=== PATIENT | female | born 1995 | race Caucasian/White ===

== ENCOUNTER 2018-01-03 08:10 | Emergency (ER) | payer OTHER, MEDICAID, SELFPAY ==
[2018-01-03 08:19] VITALS: BP 116/77; PULSE 90; RESP 18; TEMP 37.2; O2SAT 96; BMI 33.0
--- NOTE | 2018-01-03 08:21 | ED_ITS ---
HPI - Nausea/Vomiting/Diarrhea General Chief complaint: Abdominal Pain Stated complaint: DIARRHEA Time Seen by Provider: 01/03/18 08:13 Source: patient Mode of arrival: ambulatory Limitations: no limitations History of Present Illness HPI Narrative: Healthy 22-year-old female here for evaluation of 5 days of diarrhea. Patient denies any recent antibiotics. Denies any recent travel, no fevers, no abdominal pain, no urinary symptoms, no camping. 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 Has not tried anything at home for it is still tolerating oral intake. States that she feels like she is dehydrated. No blood in her stool, no black colored stools Related Data Allergies Allergy/AdvReac Type Severity Reaction Status Date / Time No Known Drug Allergies Allergy Verified 01/03/18 08:22 Review of Systems Constitutional Denies chills, Denies fever(s), Denies lethargy and Denies weakness Cardiovascular Denies chest pain, Denies irregular heart rhythm, Denies lightheadedness, Denies palpitations, Denies dyspnea, Denies dyspnea on exertion and Denies orthopnea Respiratory Denies cough, Denies dyspnea, Denies dyspnea on exertion and Denies wheezing Gastrointestinal Gastrointestinal: Denies abdominal pain, Denies bloating, Denies change in bowel habits, Reports change in stool character, Denies coffee ground emesis, Denies constipation, Denies fecal incontinence, Reports diarrhea, Reports loose stools, Denies nausea and Denies vomiting Genitourinary Denies hematuria, Denies flank pain, Denies urinary incontinence and Denies urinary urgency Musculoskeletal Denies back pain, Denies muscle weakness, Denies numbness and Denies tingling Integumentary/Breasts Denies pruritus, Denies erythema, Denies rash and Denies wounds Neurologic Denies numbness, Denies tingling and Denies weakness Endocrine Denies palpitations Hematologic/Lymphatic Denies easy bruising Allergic/Immunologic Denies wheezing [facility] Social History Smoking Status: Current every day smoker Exam Const General: cooperative and well developed Nutritional Appearance: well nourished Orientation: alert, awake, oriented x3 and not confused Resp Effort & Inspection: normal respiratory effort, able to speak in complete sentences, no respiratory distress and no use of accessory muscles Auscultation: clear to auscultation bilaterally, no rales, no rhonchi and no wheezes Cardio Rate: regular rate Rhythm: regular rhythm Heart Sounds: no click, no gallops, no murmurs and no rubs Pulses: normal peripheral pulses GI Inspection: normal to inspection and non-distended Palpation: soft, No firm and No guarding Skin General: no rashes or lesions noted, No jaundice and No petechiae Neuro General: alert, oriented x3, gait normal and no focal motor deficits Speech: speech normal Motor: strength 5/5 throughout Sensory Exam: no sensory deficits noted Extrem General: full ROM, no clubbing, cyanosis or edema, no pedal edema and no calf tenderness MDM - Nausea/Vomiting/Diarrhea MDM Narrative Medical decision making narrative: Patient had no episodes of diarrhea while here in the emergency department. 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 Will hold on antibiotics for now. Patient not clinically dehydrated. She was given Imodium here in the ER. She was instructed on the use of this medication afterwards. She was instructed on the use of increasing her fluid intake. She was given return precautions. She expressed understanding and agreement with plan Course Orders Ordered: Discontinued Medications Sodium Chloride (Normal Saline 0.9%) 1,000 mls @ 1,000 mls/hr IV BOLUS ONE Stop: 01/03/18 09:32 Last Infusion: 01/03/18 10:28 Dose: 1,000 mls/hr Admin: 01/03/18 08:35 Dose: 1,000 mls/hr Loperamide HCl (Imodium) 4 mg PO NOW ONE Stop: 01/03/18 08:34 Last Admin: 01/03/18 08:35 Dose: 4 mg Last Vital Signs Temp 98.9 F 01/03/18 08:19 Pulse 90 01/03/18 08:19 Resp 18 01/03/18 08:19 BP 116/77 01/03/18 08:19 Pulse Ox 96 01/03/18 08:19 Discharge Plan Departure Patient Disposition: Home, Self-Care Clinical Impression: Diarrhea Instructions: Diarrhea Activity Restrictions/Additional Instructions: Recommend that you increase your fluid intake. Call your primary care doctor for a follow-up. Use Imodium/loperamide that you can buy [id number] likely discussed. Return to the emergency department for any new or worsening symptoms Stand Alone Forms: Work/School Restrictions
[2018-01-03] MEDS: SODIUM CHLORIDE 0.9% 1,000 ML 1000 ML IV (08:35)
[2018-01-03] MEDS: LOPERAMIDE 2 MG CAPSULE 4 MG PO (08:35)
[2018-01-03 10:46] VITALS: BP 103/86; PULSE 84; RESP 16; O2SAT 100
== END 2018-01-03 10:45 | disposition home or self-care (01) ==
PROVIDERS: Emergency Provider Emergency Medicine; Family Provider Family Medicine; PCP Family Medicine
DX: R19.7 Diarrhea, unspecified (principal)
CPT/HCPCS: 36591; 96360; 99283; 99284

== ENCOUNTER 2018-04-08 11:35 | Emergency (ER) | payer OTHER, MEDICAID, SELFPAY ==
[2018-04-08 11:50] VITALS: BP 123/87; PULSE 91; RESP 18; TEMP 36.3; O2SAT 99; BMI 34.9
--- NOTE | 2018-04-08 14:52 | ED.ABDPAIN ---
HPI - Abdominal Pain <KAMRAN Shepard - Last Filed: 04/08/18 21:28> General Chief Complaint: Abdominal Pain Stated Complaint: rectal pain Time Seen by Provider: 04/08/18 14:52 Source: patient Mode of arrival: ambulatory Limitations: no limitations History of Present Illness HPI narrative: 22-year-old female here for complaint of pain into her anal area for the past couple of days. She also reports having increased pain at today. She reports that 3 days ago she had some constipation ever she reports she has been having soft stool daily ever since that timeframe. She denies any diarrhea. She she denies any fevers or chills. She denies any trauma to the area. She does state that she is sexually active to the rectal area. She denies any purulent drainage from the area. Denies any abdominal pain. Positive p.o. intake. No nausea or vomiting. She denies any vaginal concerns or complaints no vaginal discharge pain is limited to the perianal area. She denies any rectal bleeding. She denies any dark tarry stools. Related Data Previous Rx's Medication Instructions Recorded lidocaine 1 applictn TOP TID PRN #10 gram 04/08/18 Allergies Allergy/AdvReac Type Severity Reaction Status Date / Time albuterol Allergy Mild Redness of Verified 04/08/18 11:55 Skin Review of Systems <KAMRAN Shepard - Last Filed: 04/08/18 21:28> Constitutional Denies chills, Denies fever(s), Denies lethargy and Denies weakness Eyes Denies change in vision, Denies eye discharge, Denies irritation and Denies loss of vision ENT Ears, Nose, Mouth, and Throat: Denies change in voice, Denies neck pain and Denies sore throat Cardiovascular Denies chest pain, Denies irregular heart rhythm, Denies lightheadedness, Denies palpitations, Denies dyspnea, Denies dyspnea on exertion and Denies orthopnea Respiratory Denies cough, Denies dyspnea, Denies dyspnea on exertion and Denies wheezing Gastrointestinal Gastrointestinal: Denies abdominal pain, Denies change in bowel habits, Denies diarrhea, Denies nausea and Denies vomiting Comments: Perianal pain Genitourinary Denies hematuria, Denies flank pain, Denies urinary incontinence and Denies urinary urgency Musculoskeletal Denies neck pain Integumentary/Breasts Denies pruritus, Denies erythema, Denies rash and Denies wounds Neurologic Denies confusion, Denies loss of vision and Denies weakness Psychiatric Denies anxiety, Denies confusion, Denies depression, Denies homicidal ideation and Denies suicidal ideation Endocrine Denies palpitations Hematologic/Lymphatic Denies easy bruising Allergic/Immunologic Denies wheezing Exam <KAMRAN Shepard - Last Filed: 04/08/18 21:28> Initial Vital Signs Initial Vital Signs: Vital Signs Temperature 97.4 F L 04/08/18 11:50 Pulse Rate 91 H 04/08/18 11:50 Respiratory Rate 18 04/08/18 11:50 Blood Pressure 123/87 H 04/08/18 11:50 Pulse Oximetry 99 04/08/18 11:50 Const General: cooperative and well developed Nutritional Appearance: well nourished Orientation: alert, awake, oriented x3 and not confused HENMT Mouth: oral mucosae normal and moist mucous membranes Eyes Conjunctivae: conjunctivae normal Sclera: sclerae normal Pupils: PERRL EOM: EOM intact bilaterally Resp Effort & Inspection: normal respiratory effort, able to speak in complete sentences, no respiratory distress and no use of accessory muscles Auscultation: clear to auscultation bilaterally, no rales, no rhonchi and no wheezes Cardio Rate: regular rate Rhythm: regular rhythm Heart Sounds: no click, no gallops, no murmurs and no rubs Pulses: normal peripheral pulses GI Inspection: non-distended Palpation: soft, no hepatosplenomegaly, No guarding, No pulsatile mass and No tender Auscultation: normal bowel sounds Rectal Exam: normal sphincter tone, No hemorrhoids and tenderness Other: Multiple perianal ulcerations. Erythema to the perianal. No purulent drainage. Tenderness on palpation. <Boo Mojica MD - Last Filed: 04/09/18 08:43> Initial Vital Signs Initial Vital Signs: Vital Signs Temperature 97.4 F L 04/08/18 11:50 Pulse Rate 91 H 04/08/18 11:50 Respiratory Rate 18 04/08/18 11:50 Blood Pressure 123/87 H 04/08/18 11:50 Pulse Oximetry 99 04/08/18 11:50 Course <KAMRAN Shepard - Last Filed: 08/19/18 21:28> Orders Ordered: Discontinued Medications Hydromorphone HCl (Dilaudid) 0.5 mg IV NOW ONE Stop: 04/08/18 15:02 Vital Signs - 8 hr 04/08/18 19:47 Pulse Rate 94 H Respiratory Rate 17 Blood Pressure [Right Arm] 127/90 H Pulse Oximetry 100 <Boo Mojica MD - Last Filed: 04/09/18 08:43> Orders Ordered: Discontinued Medications Hydromorphone HCl (Dilaudid) 0.5 mg IV NOW ONE Stop: 04/08/18 15:02 Vital Signs - 8 hr 04/08/18 19:47 Pulse Rate 94 H Respiratory Rate 17 Blood Pressure [Right Arm] 127/90 H Pulse Oximetry 100 MDM - Abdominal Pain <KAMRAN Shepard - Last Filed: 04/08/18 21:28> Lab Data Result diagrams: 04/08/18 15:20 04/08/18 15:20 Lab Results 04/08/18 04/08/18 04/08/18 Range/Units 15:20 15:20 15:20 WBC 7.5 (4.5-11.0) X10^3/uL RBC 4.54 (4.0-5.2) X10^6/uL Hgb 13.6 (12.0-16.0) g/dL Hct 39.8 (36-46) % MCV 87.5 (80-100) fL MCH 29.8 (26-34) PG MCHC 34.1 (30-36) % RDW 13.2 (11.6-14.8) % Plt Count 195 (150-400) X10^3/uL Neut % (Auto) 59.6 (50-75) % Lymph % (Auto) 25.8 (25-40) % Fannin % (Auto) 13.1 (3-14) % Eos % (Auto) 1.2 L (2-4) % Baso % (Auto) 0.3 (0-2) % Neut # (Auto) 4500 (0807-9501) /uL ESR (0-20) MM/HR Sodium 139 (137-145) mmol/L Potassium 4.0 (3.4-5.1) mmol/L Chloride 104 (98-107) mmol/L Carbon Dioxide 26 (22-32) mmol/L BUN 12 (7-17) mg/dL Creatinine 0.70 (0.52-1.04) mg/dL Estimated GFR > 60.0 (>60) mL/min BUN/Creatinine Ratio 17.1 (6-22) Glucose 122 H (70-100) mg/dL Calcium 9.3 (8.4-10.2) mg/dL Total Bilirubin 0.4 (0.2-1.3) mg/dL AST 20 (14-36) IU/L ALT 26 (9-52) IU/L Alkaline Phosphatase 45 (38-126) U/L C-Reactive Protein (<1.0) mg/dL Total Protein 7.3 (6.3-8.2) g/dL Albumin 4.3 (3.5-5.0) g/dL Globulin 3.0 (1.7-4.1) g/dL Albumin/Globulin Ratio 1.4 (1.0-2.8) Procalcitonin < 0.05 (<0.5) ng/mL Urine RBC (0-5/HPF) Urine WBC (0-5/HPF) Ur Squamous Epith Cells Urine Bacteria (None) Ur Culture Indicated? Micro UA Comment C.trachomatis RNA (TMA) HSV Culture Source Herpes Simplex Culture N.gonorrhoeae RNA (TMA) 04/08/18 04/08/18 04/08/18 Range/Units 15:20 15:20 17:55 WBC (4.5-11.0) X10^3/uL RBC (4.0-5.2) X10^6/uL Hgb (12.0-16.0) g/dL Hct (36-46) % MCV (80-100) fL MCH (26-34) PG MCHC (30-36) % RDW (11.6-14.8) % Plt Count (150-400) X10^3/uL Neut % (Auto) (50-75) % Lymph % (Auto) (25-40) % Fann[place] % (Auto) (3-14) % Eos % (Auto) (2-4) % Baso % (Auto) (0-2) % Neut # (Auto) (4312-3870) /uL ESR 22 H (0-20) MM/HR Sodium (137-145) mmol/L Potassium (3.4-5.1) mmol/L Chloride (98-107) mmol/L Carbon Dioxide (22-32) mmol/L BUN (7-17) mg/dL Creatinine (0.52-1.04) mg/dL Estimated GFR (>60) mL/min BUN/Creatinine Ratio (6-22) Glucose (70-100) mg/dL Calcium (8.4-10.2) mg/dL Total Bilirubin (0.2-1.3) mg/dL AST (14-36) IU/L ALT (9-52) IU/L Alkaline Phosphatase (38-126) U/L C-Reactive Protein 2.6 H (<1.0) mg/dL Total Protein (6.3-8.2) g/dL Albumin (3.5-5.0) g/dL Globulin (1.7-4.1) g/dL Albumin/Globulin Ratio (1.0-2.8) Procalcitonin (<0.5) ng/mL Urine RBC (0-5/HPF) Urine WBC (0-5/HPF) Ur Squamous Epith Cells Urine Bacteria (None) Ur Culture Indicated? Micro UA Comment C.trachomatis RNA (TMA) HSV Culture Source Cancelled Herpes Simplex Culture Cancelled N.gonorrhoeae RNA (TMA) 04/08/18 04/08/18 Range/Units 17:55 18:10 WBC (4.5-11.0) X10^3/uL RBC (4.0-5.2) X10^6/uL Hgb (12.0-16.0) g/dL Hct (36-46) % MCV (80-100) fL MCH (26-34) PG MCHC (30-36) % RDW (11.6-14.8) % Plt Count (150-400) X10^3/uL Neut % (Auto) (50-75) % Lymph % (Auto) (25-40) % Fannin % (Auto) (3-14) % Eos % (Auto) (2-4) % Baso % (Auto) (0-2) % Neut # (Auto) (8641-5253) /uL ESR (0-20) MM/HR Sodium (137-145) mmol/L Potassium (3.4-5.1) mmol/L Chloride (98-107) mmol/L Carbon Dioxide (22-32) mmol/L BUN (7-17) mg/dL Creatinine (0.52-1.04) mg/dL Estimated GFR (>60) mL/min BUN/Creatinine Ratio (6-22) Glucose (70-100) mg/dL Calcium (8.4-10.2) mg/dL Total Bilirubin (0.2-1.3) mg/dL AST (14-36) IU/L ALT (9-52) IU/L Alkaline Phosphatase (38-126) U/L C-Reactive Protein (<1.0) mg/dL Total Protein (6.3-8.2) g/dL Albumin (3.5-5.0) g/dL Globulin (1.7-4.1) g/dL Albumin/Globulin Ratio (1.0-2.8) Procalcitonin (<0.5) ng/mL Urine RBC None seen (0-5/HPF) Urine WBC 1-5/hpf (0-5/HPF) Ur Squamous Epith Cells 0-1 /hpf Urine Bacteria Few (2-10) H (None) Ur Culture Indicated? Specimen cultured Micro UA Comment Not Reportable C.trachomatis RNA (TMA) Cancelled HSV Culture Source Herpes Simplex Culture N.gonorrhoeae RNA (TMA) Cancelled Point of care testing: Point of Care Testing Test Results Negative Urine Dip Bedside Urine Glucose Negative Bedside Urine Bilirubin - Negative Bedside Urine Ketone - Negative Urine Specific [place] 1.030 Bedside Urine Occult Blood - Negative Bedside Urine pH 6.0 Bedside Urine Protein - Negative Bedside Urine Urobilinogen - Negative Bedside Urine Nitrite - Negative Bedside Urine Leukocytes + 70 Esterase MDM Narrative Medical decision making narrative: CBC was obtained was unremarkable. Chem panel was obtained was unremarkable. ESR and CRP are slightly elevated. Patient is sexually active anally so swabs were obtained for GC and chlamydia and also for herpes. RPR is also pending. She seemed to do well with treatment with lidocaine jelly to the area. She is prescribed lidocaine jelly for the discomfort along with [id number] Tylenol and/or ibuprofen. Would like patient to also use Beaudreauxs butt paste to treat and protect the area as well. Follow up with primary care provider later this week for lab results and further evaluation as and possible referral to specialty care for further evaluation. Differential between STD cause or may be due to Crohn's/ulcerative colitis. Patient was unable to provide stool sample for culture. <Boo Mojica MD - Last Filed: 04/09/18 08:43> Lab Data Lab Results 04/08/18 04/08/18 04/08/18 Range/Units 15:20 15:20 15:20 WBC 7.5 (4.5-11.0) X10^3/uL RBC 4.54 (4.0-5.2) X10^6/uL Hgb 13.6 (12.0-16.0) g/dL Hct 39.8 (36-46) % MCV 87.5 (80-100) fL MCH 29.8 (26-34) PG MCHC 34.1 (30-36) % RDW 13.2 (11.6-14.8) % Plt Count 195 (150-400) X10^3/uL Neut % (Auto) 59.6 (50-75) % Lymph % (Auto) 25.8 (25-40) % Fannin % (Auto) 13.1 (3-14) % Eos % (Auto) 1.2 L (2-4) % Baso % (Auto) 0.3 (0-2) % Neut # (Auto) 4500 (2404-3527) /uL ESR (0-20) MM/HR Sodium 139 (137-145) mmol/L Potassium 4.0 (3.4-5.1) mmol/L Chloride 104 (98-107) mmol/L Carbon Dioxide 26 (22-32) mmol/L BUN 12 (7-17) mg/dL Creatinine 0.70 (0.52-1.04) mg/dL Estimated GFR > 60.0 (>60) mL/min BUN/Creatinine Ratio 17.1 (6-22) Glucose 122 H (70-100) mg/dL Calcium 9.3 (8.4-10.2) mg/dL Total Bilirubin 0.4 (0.2-1.3) mg/dL AST 20 (14-36) IU/L ALT 26 (9-52) IU/L Alkaline Phosphatase 45 (38-126) U/L C-Reactive Protein (<1.0) mg/dL Total Protein 7.3 (6.3-8.2) g/dL Albumin 4.3 (3.5-5.0) g/dL Globulin 3.0 (1.7-4.1) g/dL Albumin/Globulin Ratio 1.4 (1.0-2.8) Procalcitonin < 0.05 (<0.5) ng/mL Urine RBC (0-5/HPF) Urine WBC (0-5/HPF) Ur Squamous Epith Cells Urine Bacteria (None) Ur Culture Indicated? Micro UA Comment C.trachomatis RNA (TMA) HSV Culture Source Herpes Simplex Culture N.gonorrhoeae RNA (TMA) 04/08/18 04/08/18 04/08/18 Range/Units 15:20 15:20 17:55 WBC (4.5-11.0) X10^3/uL RBC (4.0-5.2) X10^6/uL Hgb (12.0-16.0) g/dL Hct (36-46) % MCV (80-100) fL MCH (26-34) PG MCHC (30-36) % RDW (11.6-14.8) % Plt Count (150-400) X10^3/uL Neut % (Auto) (50-75) % Lymph % (Auto) (25-40) % Fannin % (Auto) (3-14) % Eos % (Auto) (2-4) % Baso % (Auto) (0-2) % Neut # (Auto) (8943-5396) /uL ESR 22 H (0-20) MM/HR Sodium (137-145) mmol/L Potassium (3.4-5.1) mmol/L Chloride (98-107) mmol/L Carbon Dioxide (22-32) mmol/L BUN (7-17) mg/dL Creatinine (0.52-1.04) mg/dL Estimated GFR (>60) mL/min BUN/Creatinine Ratio (6-22) Glucose (70-100) mg/dL Calcium (8.4-10.2) mg/dL Total Bilirubin (0.2-1.3) mg/dL AST (14-36) IU/L ALT (9-52) IU/L Alkaline Phosphatase (38-126) U/L C-Reactive Protein 2.6 H (<1.0) mg/dL Total Protein (6.3-8.2) g/dL Albumin (3.5-5.0) g/dL Globulin (1.7-4.1) g/dL Albumin/Globulin Ratio (1.0-2.8) Procalcitonin (<0.5) ng/mL Urine RBC (0-5/HPF) Urine WBC (0-5/HPF) Ur Squamous Epith Cells Urine Bacteria (None) Ur Culture Indicated? Micro UA Comment C.trachomatis RNA (TMA) HSV Culture Source Cancelled Herpes Simplex Culture Cancelled N.gonorrhoeae RNA (TMA) 04/08/18 04/08/18 Range/Units 17:55 18:10 WBC (4.5-11.0) X10^3/uL RBC (4.0-5.2) X10^6/uL Hgb (12.0-16.0) g/dL Hct (36-46) % MCV (80-100) fL MCH (26-34) PG MCHC (30-36) % RDW (11.6-14.8) % Plt Count (150-400) X10^3/uL Neut % (Auto) (50-75) % Lymph % (Auto) (25-40) % Fannin % (Auto) (3-14) % Eos % (Auto) (2-4) % Baso % (Auto) (0-2) % Neut # (Auto) (4821-2131) /uL ESR (0-20) MM/HR Sodium (137-145) mmol/L Potassium (3.4-5.1) mmol/L Chloride (98-107) mmol/L Carbon Dioxide (22-32) mmol/L BUN (7-17) mg/dL Creatinine (0.52-1.04) mg/dL Estimated GFR (>60) mL/min BUN/Creatinine Ratio (6-22) Glucose (70-100) mg/dL Calcium (8.4-10.2) mg/dL Total Bilirubin (0.2-1.3) mg/dL AST (14-36) IU/L ALT (9-52) IU/L Alkaline Phosphatase (38-126) U/L C-Reactive Protein (<1.0) mg/dL Total Protein (6.3-8.2) g/dL Albumin (3.5-5.0) g/dL Globulin (1.7-4.1) g/dL Albumin/Globulin Ratio (1.0-2.8) Procalcitonin (<0.5) ng/mL Urine RBC None seen (0-5/HPF) Urine WBC 1-5/hpf (0-5/HPF) Ur Squamous Epith Cells 0-1 /hpf Urine Bacteria Few (2-10) H (None) Ur Culture Indicated? Specimen cultured Micro UA Comment Not Reportable C.trachomatis RNA (TMA) Cancelled HSV Culture Source Herpes Simplex Culture N.gonorrhoeae RNA (TMA) Cancelled Point of care testing: Point of Care Testing Test Results Negative Urine Dip Bedside Urine Glucose Negative Bedside Urine Bilirubin - Negative Bedside Urine Ketone - Negative Urine Specific [place] 1.030 Bedside Urine Occult Blood - Negative Bedside Urine pH 6.0 Bedside Urine Protein - Negative Bedside Urine Urobilinogen - Negative Bedside Urine Nitrite - Negative Bedside Urine Leukocytes + 70 Esterase Discharge Plan Departure Patient Disposition: Home Clinical Impression: Pain of perianal area Discharge Date/Time: 04/08/18 19:52 Interventions: ED Discharge Assessment Last Done: 04/08/18 19:51 Instructions: DI for Anal Itching (Pruritus Ani) Activity Restrictions/Additional Instructions: Laboratory results today were unremarkable. On exam shows multiple ulceration to the perianal area of unknown origin. Laboratory results are pending for STD. Follow up with her primary care provider later this week for re-evaluation and lab results.. Use [id number] Tylenol or Motrin as needed for any discomfort and lidocaine jelly for discomfort. Also use [id number] Beaudreauxs Butt paste to protect and soothe the area as directed on the instructions. For any worsening symptoms return to the emergency room. Prescriptions: New lidocaine 4 % gel 1 applictn TOP TID PRN (Reason: pain) Qty: 10 RF: 0 Referrals: Ashwini Ortega MD [Primary Care Provider] - <Boo Mojica MD - Last Filed: 04/09/18 08:43> Sign Out Provider Sign Out Attestation: The PA/RAILROAD AUDITOR functioned independently for the care of this pt, I was available, but not asked to participate in care. I am unable to determine appropriateness of management without personally examining the pt.
--- NOTE | 2018-04-08 15:05 | PC.NURSE ---
Exam with provider. Use of lidocaine jelly per provider for internal exam
[2018-04-08 15:33] LABS: Add Manual Diff / Slide Review NO; Basophils Percent Auto 0.3 % (0-2); Eosinophils Percent Auto 1.2 % (2-4); Hematocrit 39.8 % (36-46); Hemoglobin 13.6 g/dL (12.0-16.0); Lymphocytes Percent Auto 25.8 % (25-40); Mean Corpuscular HGB Conc 34.1 % (30-36); Mean Corpuscular Hemoglobin 29.8 PG (26-34); Mean Corpuscular Volume 87.5 fL (80-100); Monocytes Percent Auto 13.1 % (3-14); Neutrophils Absolute Auto 4500 /uL (3000-5900); Neutrophils Percent Auto 59.6 % (50-75); Platelet Count 195 X10^3/uL (150-400); Red Blood Cell Count 4.54 X10^6/uL (4.0-5.2); Red Cell Distribution Width 13.2 % (11.6-14.8); White Blood Cell Count 7.5 X10^3/uL (4.5-11.0)
[2018-04-08 15:50] LABS: Alanine Aminotransferase 26 IU/L (9-52); Albumin 4.3 g/dL (3.5-5.0); Albumin Globulin Ratio 1.4 (1.0-2.8); Alkaline Phosphatase 45 U/L (38-126); Aspartate Aminotransferase 20 IU/L (14-36); BUN Creatinine Ratio 17.1 (6-22); Bilirubin Total 0.4 mg/dL (0.2-1.3); Blood Urea Nitrogen 12 mg/dL (7-17); Calcium 9.3 mg/dL (8.4-10.2); Carbon Dioxide 26 mmol/L (22-32); Chloride 104 mmol/L (98-107); Estimated Glomerular Filt Rate > 60.0 mL/min (>60); Glucose 122 mg/dL (70-100); HEMOLYSIS < 15 (0-50); Sodium 139 mmol/L (137-145); Total Protein 7.3 g/dL (6.3-8.2)
[2018-04-08 15:54] LABS: C-Reactive Protein Quant 2.6 mg/dL (<1.0)
[2018-04-08 16:14] LABS: Erythrocyte Sedimentation Rate 22 MM/HR (0-20)
[2018-04-08 16:17] LABS: Procalcitonin < 0.05 ng/mL (<0.5)
--- NOTE | 2018-04-08 17:58 | ED_ITS ---
HPI - Abdominal Pain <KAMRAN Shepard - Last Filed: 04/08/18 21:28> General Chief Complaint: Abdominal Pain Stated Complaint: rectal pain Time Seen by Provider: 04/08/18 14:52 Source: patient Mode of arrival: ambulatory Limitations: no limitations History of Present Illness HPI narrative: 22-year-old female here for complaint of pain into her anal area for the past couple of days. She also reports having increased pain at today. She reports that 3 days ago she had some constipation ever she reports she has been having soft stool daily ever since that timeframe. She denies any diarrhea. She she denies any fevers or chills. She denies any trauma to the area. She does state that she is sexually active to the rectal area. She denies any purulent drainage from the area. Denies any abdominal pain. Positive p.o. intake. No nausea or vomiting. She denies any vaginal concerns or complaints no vaginal discharge pain is limited to the perianal area. She denies any rectal bleeding. She denies any dark tarry stools. Related Data Previous Rx's Medication Instructions Recorded lidocaine 1 applictn TOP TID PRN #10 gram 04/08/18 Allergies Allergy/AdvReac Type Severity Reaction Status Date / Time albuterol Allergy Mild Redness of Verified 04/08/18 11:55 Skin Review of Systems <KAMRAN Shepard - Last Filed: 04/08/18 21:28> Constitutional Denies chills, Denies fever(s), Denies lethargy and Denies weakness Eyes Denies change in vision, Denies eye discharge, Denies irritation and Denies loss of vision ENT Ears, Nose, Mouth, and Throat: Denies change in voice, Denies neck pain and Denies sore throat Cardiovascular Denies chest pain, Denies irregular heart rhythm, Denies lightheadedness, Denies palpitations, Denies dyspnea, Denies dyspnea on exertion and Denies orthopnea Respiratory Denies cough, Denies dyspnea, Denies dyspnea on exertion and Denies wheezing Gastrointestinal Gastrointestinal: Denies abdominal pain, Denies change in bowel habits, Denies diarrhea, Denies nausea and Denies vomiting Comments: Perianal pain Genitourinary Denies hematuria, Denies flank pain, Denies urinary incontinence and Denies urinary urgency Musculoskeletal Denies neck pain Integumentary/Breasts Denies pruritus, Denies erythema, Denies rash and Denies wounds Neurologic Denies confusion, Denies loss of vision and Denies weakness Psychiatric Denies anxiety, Denies confusion, Denies depression, Denies homicidal ideation and Denies suicidal ideation Endocrine Denies palpitations Hematologic/Lymphatic Denies easy bruising Allergic/Immunologic Denies wheezing Exam <KAMRAN Shepard - Last Filed: 04/08/18 21:28> Initial Vital Signs Initial Vital Signs: Vital Signs Temperature 97.4 F L 04/08/18 11:50 Pulse Rate 91 H 04/08/18 11:50 Respiratory Rate 18 04/08/18 11:50 Blood Pressure 123/87 H 04/08/18 11:50 Pulse Oximetry 99 04/08/18 11:50 Const General: cooperative and well developed Nutritional Appearance: well nourished Orientation: alert, awake, oriented x3 and not confused HENMT Mouth: oral mucosae normal and moist mucous membranes Eyes Conjunctivae: conjunctivae normal Sclera: sclerae normal Pupils: PERRL EOM: EOM intact bilaterally Resp Effort & Inspection: normal respiratory effort, able to speak in complete sentences, no respiratory distress and no use of accessory muscles Auscultation: clear to auscultation bilaterally, no rales, no rhonchi and no wheezes Cardio Rate: regular rate Rhythm: regular rhythm Heart Sounds: no click, no gallops, no murmurs and no rubs Pulses: normal peripheral pulses GI Inspection: non-distended Palpation: soft, no hepatosplenomegaly, No guarding, No pulsatile mass and No tender Auscultation: normal bowel sounds Rectal Exam: normal sphincter tone, No hemorrhoids and tenderness Other: Multiple perianal ulcerations. Erythema to the perianal. No purulent drainage. Tenderness on palpation. <Boo Mojica MD - Last Filed: 04/09/18 08:43> Initial Vital Signs Initial Vital Signs: Vital Signs Temperature 97.4 F L 04/08/18 11:50 Pulse Rate 91 H 04/08/18 11:50 Respiratory Rate 18 04/08/18 11:50 Blood Pressure 123/87 H 04/08/18 11:50 Pulse Oximetry 99 04/08/18 11:50 Course <KAMRAN Shepard - Last Filed: 08/19/18 21:28> Orders Ordered: Discontinued Medications Hydromorphone HCl (Dilaudid) 0.5 mg IV NOW ONE Stop: 04/08/18 15:02 Vital Signs - 8 hr 04/08/18 19:47 Pulse Rate 94 H Respiratory Rate 17 Blood Pressure [Right Arm] 127/90 H Pulse Oximetry 100 <Boo Mojica MD - Last Filed: 04/09/18 08:43> Orders Ordered: Discontinued Medications Hydromorphone HCl (Dilaudid) 0.5 mg IV NOW ONE Stop: 04/08/18 15:02 Vital Signs - 8 hr 04/08/18 19:47 Pulse Rate 94 H Respiratory Rate 17 Blood Pressure [Right Arm] 127/90 H Pulse Oximetry 100 MDM - Abdominal Pain <KAMRAN Shepard - Last Filed: 04/08/18 21:28> Lab Data Result diagrams: 04/08/18 15:20 04/08/18 15:20 Lab Results 04/08/18 04/08/18 04/08/18 Range/Units 15:20 15:20 15:20 WBC 7.5 (4.5-11.0) X10^3/uL RBC 4.54 (4.0-5.2) X10^6/uL Hgb 13.6 (12.0-16.0) g/dL Hct 39.8 (36-46) % MCV 87.5 (80-100) fL MCH 29.8 (26-34) PG MCHC 34.1 (30-36) % RDW 13.2 (11.6-14.8) % Plt Count 195 (150-400) X10^3/uL Neut % (Auto) 59.6 (50-75) % Lymph % (Auto) 25.8 (25-40) % [place] % (Auto) 13.1 (3-14) % Eos % (Auto) 1.2 L (2-4) % Baso % (Auto) 0.3 (0-2) % Neut # (Auto) 4500 (7443-0192) /uL ESR (0-20) MM/HR Sodium 139 (137-145) mmol/L Potassium 4.0 (3.4-5.1) mmol/L Chloride 104 (98-107) mmol/L Carbon Dioxide 26 (22-32) mmol/L BUN 12 (7-17) mg/dL Creatinine 0.70 (0.52-1.04) mg/dL Estimated GFR > 60.0 (>60) mL/min BUN/Creatinine Ratio 17.1 (6-22) Glucose 122 H (70-100) mg/dL Calcium 9.3 (8.4-10.2) mg/dL Total Bilirubin 0.4 (0.2-1.3) mg/dL AST 20 (14-36) IU/L ALT 26 (9-52) IU/L Alkaline Phosphatase 45 (38-126) U/L C-Reactive Protein (<1.0) mg/dL Total Protein 7.3 (6.3-8.2) g/dL Albumin 4.3 (3.5-5.0) g/dL Globulin 3.0 (1.7-4.1) g/dL Albumin/Globulin Ratio 1.4 (1.0-2.8) Procalcitonin < 0.05 (<0.5) ng/mL Urine RBC (0-5/HPF) Urine WBC (0-5/HPF) Ur Squamous Epith Cells Urine Bacteria (None) Ur Culture Indicated? Micro UA Comment C.trachomatis RNA (TMA) HSV Culture Source Herpes Simplex Culture N.gonorrhoeae RNA (TMA) 04/08/18 04/08/18 04/08/18 Range/Units 15:20 15:20 17:55 WBC (4.5-11.0) X10^3/uL RBC (4.0-5.2) X10^6/uL Hgb (12.0-16.0) g/dL Hct (36-46) % MCV (80-100) fL MCH (26-34) PG MCHC (30-36) % RDW (11.6-14.8) % Plt Count (150-400) X10^3/uL Neut % (Auto) (50-75) % Lymph % (Auto) (25-40) % [place] % (Auto) (3-14) % Eos % (Auto) (2-4) % Baso % (Auto) (0-2) % Neut # (Auto) (4672-5165) /uL ESR 22 H (0-20) MM/HR Sodium (137-145) mmol/L Potassium (3.4-5.1) mmol/L Chloride (98-107) mmol/L Carbon Dioxide (22-32) mmol/L BUN (7-17) mg/dL Creatinine (0.52-1.04) mg/dL Estimated GFR (>60) mL/min BUN/Creatinine Ratio (6-22) Glucose (70-100) mg/dL Calcium (8.4-10.2) mg/dL Total Bilirubin (0.2-1.3) mg/dL AST (14-36) IU/L ALT (9-52) IU/L Alkaline Phosphatase (38-126) U/L C-Reactive Protein 2.6 H (<1.0) mg/dL Total Protein (6.3-8.2) g/dL Albumin (3.5-5.0) g/dL Globulin (1.7-4.1) g/dL Albumin/Globulin Ratio (1.0-2.8) Procalcitonin (<0.5) ng/mL Urine RBC (0-5/HPF) Urine WBC (0-5/HPF) Ur Squamous Epith Cells Urine Bacteria (None) Ur Culture Indicated? Micro UA Comment C.trachomatis RNA (TMA) HSV Culture Source Cancelled Herpes Simplex Culture Cancelled N.gonorrhoeae RNA (TMA) 04/08/18 04/08/18 Range/Units 17:55 18:10 WBC (4.5-11.0) X10^3/uL RBC (4.0-5.2) X10^6/uL Hgb (12.0-16.0) g/dL Hct (36-46) % MCV (80-100) fL MCH (26-34) PG MCHC (30-36) % RDW (11.6-14.8) % Plt Count (150-400) X10^3/uL Neut % (Auto) (50-75) % Lymph % (Auto) (25-40) % [place] % (Auto) (3-14) % Eos % (Auto) (2-4) % Baso % (Auto) (0-2) % Neut # (Auto) (1468-1447) /uL ESR (0-20) MM/HR Sodium (137-145) mmol/L Potassium (3.4-5.1) mmol/L Chloride (98-107) mmol/L Carbon Dioxide (22-32) mmol/L BUN (7-17) mg/dL Creatinine (0.52-1.04) mg/dL Estimated GFR (>60) mL/min BUN/Creatinine Ratio (6-22) Glucose (70-100) mg/dL Calcium (8.4-10.2) mg/dL Total Bilirubin (0.2-1.3) mg/dL AST (14-36) IU/L ALT (9-52) IU/L Alkaline Phosphatase (38-126) U/L C-Reactive Protein (<1.0) mg/dL Total Protein (6.3-8.2) g/dL Albumin (3.5-5.0) g/dL Globulin (1.7-4.1) g/dL Albumin/Globulin Ratio (1.0-2.8) Procalcitonin (<0.5) ng/mL Urine RBC None seen (0-5/HPF) Urine WBC 1-5/hpf (0-5/HPF) Ur Squamous Epith Cells 0-1 /hpf Urine Bacteria Few (2-10) H (None) Ur Culture Indicated? Specimen cultured Micro UA Comment Not Reportable C.trachomatis RNA (TMA) Cancelled HSV Culture Source Herpes Simplex Culture N.gonorrhoeae RNA (TMA) Cancelled Point of care testing: Point of Care Testing Test Results Negative Urine Dip Bedside Urine Glucose Negative Bedside Urine Bilirubin - Negative Bedside Urine Ketone - Negative Urine Specific Globe 1.030 Bedside Urine Occult Blood - Negative Bedside Urine pH 6.0 Bedside Urine Protein - Negative Bedside Urine Urobilinogen - Negative Bedside Urine Nitrite - Negative Bedside Urine Leukocytes + 70 Esterase MDM Narrative Medical decision making narrative: CBC was obtained was unremarkable. Chem panel was obtained was unremarkable. ESR and CRP are slightly elevated. Patient is sexually active anally so swabs were obtained for GC and chlamydia and also for herpes. RPR is also pending. She seemed to do well with treatment with lidocaine jelly to the area. She is prescribed lidocaine jelly for the discomfort along with [id number] Tylenol and/or ibuprofen. Would like patient to also use Beaudreauxs butt paste to treat and protect the area as well. Follow up with primary care provider later this week for lab results and further evaluation as and possible referral to specialty care for further evaluation. Differential between STD cause or may be due to Crohn's/ulcerative colitis. Patient was unable to provide stool sample for culture. <Boo Mojica MD - Last Filed: 04/09/18 08:43> Lab Data Lab Results 04/08/18 04/08/18 04/08/18 Range/Units 15:20 15:20 15:20 WBC 7.5 (4.5-11.0) X10^3/uL RBC 4.54 (4.0-5.2) X10^6/uL Hgb 13.6 (12.0-16.0) g/dL Hct 39.8 (36-46) % MCV 87.5 (80-100) fL MCH 29.8 (26-34) PG MCHC 34.1 (30-36) % RDW 13.2 (11.6-14.8) % Plt Count 195 (150-400) X10^3/uL Neut % (Auto) 59.6 (50-75) % Lymph % (Auto) 25.8 (25-40) % [place] % (Auto) 13.1 (3-14) % Eos % (Auto) 1.2 L (2-4) % Baso % (Auto) 0.3 (0-2) % Neut # (Auto) 4500 (1165-4772) /uL ESR (0-20) MM/HR Sodium 139 (137-145) mmol/L Potassium 4.0 (3.4-5.1) mmol/L Chloride 104 (98-107) mmol/L Carbon Dioxide 26 (22-32) mmol/L BUN 12 (7-17) mg/dL Creatinine 0.70 (0.52-1.04) mg/dL Estimated GFR > 60.0 (>60) mL/min BUN/Creatinine Ratio 17.1 (6-22) Glucose 122 H (70-100) mg/dL Calcium 9.3 (8.4-10.2) mg/dL Total Bilirubin 0.4 (0.2-1.3) mg/dL AST 20 (14-36) IU/L ALT 26 (9-52) IU/L Alkaline Phosphatase 45 (38-126) U/L C-Reactive Protein (<1.0) mg/dL Total Protein 7.3 (6.3-8.2) g/dL Albumin 4.3 (3.5-5.0) g/dL Globulin 3.0 (1.7-4.1) g/dL Albumin/Globulin Ratio 1.4 (1.0-2.8) Procalcitonin < 0.05 (<0.5) ng/mL Urine RBC (0-5/HPF) Urine WBC (0-5/HPF) Ur Squamous Epith Cells Urine Bacteria (None) Ur Culture Indicated? Micro UA Comment C.trachomatis RNA (TMA) HSV Culture Source Herpes Simplex Culture N.gonorrhoeae RNA (TMA) 04/08/18 04/08/18 04/08/18 Range/Units 15:20 15:20 17:55 WBC (4.5-11.0) X10^3/uL RBC (4.0-5.2) X10^6/uL Hgb (12.0-16.0) g/dL Hct (36-46) % MCV (80-100) fL MCH (26-34) PG MCHC (30-36) % RDW (11.6-14.8) % Plt Count (150-400) X10^3/uL Neut % (Auto) (50-75) % Lymph % (Auto) (25-40) % [place] % (Auto) (3-14) % Eos % (Auto) (2-4) % Baso % (Auto) (0-2) % Neut # (Auto) (8783-8521) /uL ESR 22 H (0-20) MM/HR Sodium (137-145) mmol/L Potassium (3.4-5.1) mmol/L Chloride (98-107) mmol/L Carbon Dioxide (22-32) mmol/L BUN (7-17) mg/dL Creatinine (0.52-1.04) mg/dL Estimated GFR (>60) mL/min BUN/Creatinine Ratio (6-22) Glucose (70-100) mg/dL Calcium (8.4-10.2) mg/dL Total Bilirubin (0.2-1.3) mg/dL AST (14-36) IU/L ALT (9-52) IU/L Alkaline Phosphatase (38-126) U/L C-Reactive Protein 2.6 H (<1.0) mg/dL Total Protein (6.3-8.2) g/dL Albumin (3.5-5.0) g/dL Globulin (1.7-4.1) g/dL Albumin/Globulin Ratio (1.0-2.8) Procalcitonin (<0.5) ng/mL Urine RBC (0-5/HPF) Urine WBC (0-5/HPF) Ur Squamous Epith Cells Urine Bacteria (None) Ur Culture Indicated? Micro UA Comment C.trachomatis RNA (TMA) HSV Culture Source Cancelled Herpes Simplex Culture Cancelled N.gonorrhoeae RNA (TMA) 04/08/18 04/08/18 Range/Units 17:55 18:10 WBC (4.5-11.0) X10^3/uL RBC (4.0-5.2) X10^6/uL Hgb (12.0-16.0) g/dL Hct (36-46) % MCV (80-100) fL MCH (26-34) PG MCHC (30-36) % RDW (11.6-14.8) % Plt Count (150-400) X10^3/uL Neut % (Auto) (50-75) % Lymph % (Auto) (25-40) % [place] % (Auto) (3-14) % Eos % (Auto) (2-4) % Baso % (Auto) (0-2) % Neut # (Auto) (2765-9189) /uL ESR (0-20) MM/HR Sodium (137-145) mmol/L Potassium (3.4-5.1) mmol/L Chloride (98-107) mmol/L Carbon Dioxide (22-32) mmol/L BUN (7-17) mg/dL Creatinine (0.52-1.04) mg/dL Estimated GFR (>60) mL/min BUN/Creatinine Ratio (6-22) Glucose (70-100) mg/dL Calcium (8.4-10.2) mg/dL Total Bilirubin (0.2-1.3) mg/dL AST (14-36) IU/L ALT (9-52) IU/L Alkaline Phosphatase (38-126) U/L C-Reactive Protein (<1.0) mg/dL Total Protein (6.3-8.2) g/dL Albumin (3.5-5.0) g/dL Globulin (1.7-4.1) g/dL Albumin/Globulin Ratio (1.0-2.8) Procalcitonin (<0.5) ng/mL Urine RBC None seen (0-5/HPF) Urine WBC 1-5/hpf (0-5/HPF) Ur Squamous Epith Cells 0-1 /hpf Urine Bacteria Few (2-10) H (None) Ur Culture Indicated? Specimen cultured Micro UA Comment Not Reportable C.trachomatis RNA (TMA) Cancelled HSV Culture Source Herpes Simplex Culture N.gonorrhoeae RNA (TMA) Cancelled Point of care testing: Point of Care Testing Test Results Negative Urine Dip Bedside Urine Glucose Negative Bedside Urine Bilirubin - Negative Bedside Urine Ketone - Negative Urine Specific Globe 1.030 Bedside Urine Occult Blood - Negative Bedside Urine pH 6.0 Bedside Urine Protein - Negative Bedside Urine Urobilinogen - Negative Bedside Urine Nitrite - Negative Bedside Urine Leukocytes + 70 Esterase Discharge Plan Departure Patient Disposition: Home Clinical Impression: Pain of perianal area Discharge Date/Time: 04/08/18 19:52 Interventions: ED Discharge Assessment Last Done: 04/08/18 19:51 Instructions: DI for Anal Itching (Pruritus Ani) Activity Restrictions/Additional Instructions: Laboratory results today were unremarkable. On exam shows multiple ulceration to the perianal area of unknown origin. Laboratory results are pending for STD. Follow up with her primary care provider later this week for re- evaluation and lab results.. Use [id number] Tylenol or Motrin as needed for any discomfort and lidocaine jelly for discomfort. Also use over-the- counter Beaudreauxs Butt paste to protect and soothe the area as directed on the instructions. For any worsening symptoms return to the emergency room. Prescriptions: New lidocaine 4 % gel 1 applictn TOP TID PRN (Reason: pain) Qty: 10 RF: 0 Referrals: Ashwini Ortega MD [Primary Care Provider] - <Boo Mojica MD - Last Filed: 04/09/18 08:43> Sign Out Provider Sign Out Attestation: The PA/CAMP GUARD functioned independently for the care of this pt, I was available, but not asked to participate in care. I am unable to determine appropriateness of management without personally examining the pt.
[2018-04-08 19:22] LABS: RBC Urine None Seen (0-5/HPF)
[2018-04-08 19:30] LABS: Bacteria Urine Few (2-10); Culture Indicated Urine Specimen Cultured; Squamous Epithelial Cell Urine 0-1 /HPF; WBC Urine 1-5/HPF (0-5/HPF)
[2018-04-08 19:47] VITALS: BP 127/90; PULSE 94; RESP 17; O2SAT 100
[2018-04-12 15:32] LABS: Rapid Plasma Reagin NON REACTIVE
--- NOTE | 2018-04-18 17:23 | PC.NURSE ---
Called pts cell number listed in chart. no answer.Left voicemail explaining to pt we have lab results to discuss with her and to please call us back at [phone] at her earliest convenience . Lab results placed in envelope on [employer] [facility] desk.
--- NOTE | 2018-04-19 10:23 | PC.NURSE ---
Gave car washer pts lab results to call pt back, since we have not been able to get in touch with pt to explain results.
--- NOTE | 2018-04-19 11:57 | PC.NURSE ---
Called Riana at [phone], and notified her that her genital herpes simplex virus culture came back positive for isolated culture of HSV. reported that we needed to fax the std case report form to the [facility]. informed patient that she needed to notify her sexual partners. pt verbalized an understanding. offered pt a copy of her test results. pt declined. Dr. Rust aware of the test results and for discharge specialist to notify patient. form faxed and original copy placed in medical records.
== END 2018-04-08 19:52 | disposition home or self-care (01) ==
PROVIDERS: Emergency Provider Nurse Practitioner Family; Family Provider Family Medicine; PCP Family Medicine
DX: K62.89 Other specified diseases of anus and rectum (principal)
CPT/HCPCS: 36591; 80053; 81003; 81015; 81025; 84145; 85025; 85651; 86140; 86592; 87086; 87255; 87491; 87591; 99283

== ENCOUNTER 2019-01-25 16:45 | Emergency (ER) | payer OTHER, MEDICAID, SELFPAY ==
[2019-01-25 16:53] VITALS: BP 133/97; PULSE 86; RESP 16; TEMP 36.7; O2SAT 94; BMI 34.9
[2019-01-25] MEDS: SODIUM CHLORIDE 0.9% 1,000 ML 1000 ML IV ×2 (17:30→18:36)
[2019-01-25 17:32] VITALS: BP 115/76; BP 117/77; BP 133/97; PULSE 78; PULSE 84; PULSE 91
--- NOTE | 2019-01-25 17:32 | PC.NURSE ---
Reports some dizziness upon standing.
[2019-01-25 17:35] LABS: Eosinophils Percent Auto 1.5 % (2-4); Hemoglobin 14.7 g/dL (12.0-16.0); Monocytes Percent Auto 8.5 % (3-14); Neutrophils Percent Auto 58.3 % (50-75); White Blood Cell Count 7.4 X10^3/uL (4.5-11.0)
[2019-01-25 17:43] LABS: Alanine Aminotransferase 22 IU/L (9-52); Albumin 4.8 g/dL (3.5-5.0); Albumin Globulin Ratio 1.4 (1.0-2.8); Alkaline Phosphatase 52 U/L (38-126); Aspartate Aminotransferase 24 IU/L (14-36); Bilirubin Total 0.6 mg/dL (0.2-1.3); Blood Urea Nitrogen 13 mg/dL (7-17); Calcium 10.1 mg/dL (8.4-10.2); Carbon Dioxide 26 mmol/L (22-32); Chloride 100 mmol/L (98-107); Estimated Glomerular Filt Rate > 60.0 mL/min (>60); Globulin 3.4 g/dL (1.7-4.1); Glucose 98 mg/dL (70-100); HEMOLYSIS < 15 (0-50); Potassium 3.7 mmol/L (3.4-5.1); Sodium 137 mmol/L (137-145); Total Protein 8.2 g/dL (6.3-8.2)
[2019-01-25] MEDS: MECLIZINE HCL 12.5 MG TABLET 50 MG PO (17:51)
[2019-01-25 17:52] LABS: Bacteria Urine None Seen; WBC Urine None Seen (0-5/HPF)
[2019-01-25 18:01] LABS: Culture Indicated Urine Cult Not Indicated; RBC Urine 0-1/HPF (0-5/HPF); Squamous Epithelial Cell Urine 0-1 /HPF (0-5/HPF)
[2019-01-25 18:04] LABS: Hematocrit 43.3 % (36-46); Mean Corpuscular HGB Conc 33.9 % (30-36); Mean Corpuscular Hemoglobin 29.2 PG (26-34); Platelet Count 238 X10^3/uL (150-400); Red Blood Cell Count 5.03 X10^6/uL (4.0-5.2); Red Cell Distribution Width 12.9 % (11.6-14.8)
[2019-01-25 18:37] LABS: Add Manual Diff / Slide Review NO; Basophils Percent Auto 0.3 % (0-2)
[2019-01-25 19:53] VITALS: BP 104/72; PULSE 75; RESP 16; O2SAT 98
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
== END 2019-01-25 20:04 | disposition home or self-care (01) ==
PROVIDERS: Emergency Provider Nurse Practitioner Family
DX: R42 Dizziness and giddiness (principal)
CPT/HCPCS: 80053; 81003; 81015; 81025; 85025; 96360; 96361; 99283

== ENCOUNTER 2019-08-13 15:39 | Emergency (ER) | payer SELFPAY ==
[2019-08-13 15:55] VITALS: BP 124/78; PULSE 86; RESP 18; TEMP 37.1; O2SAT 99
[2019-08-13 16:47] VITALS: BP 112/76; PULSE 80; RESP 12; TEMP 37.1; O2SAT 98
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
== END 2019-08-13 18:01 | disposition home or self-care (01) ==
PROVIDERS: Emergency Provider Nurse Practitioner Family
DX: L03.116 Cellulitis of left lower limb (principal)
CPT/HCPCS: 87070; 87075; 87205; 99281; 99283

== ENCOUNTER 2020-06-04 22:40 | Emergency (ER) | payer OTHER, SELFPAY ==
--- NOTE | 2020-06-04 22:52 | ED.GENADULT ---
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 She has not noted fevers or chills she has been more fatigued. No gross hematuria, no black or bloody stools. She does note that she has been having some mild dysphagia in the upper esophagus when swallowing solid foods but does not describe any aspiration with thin liquids. She reports no recurrent purpura or rashes. Over the last week all of her symptoms have been getting generally worse with a sense of overall malaise. She is followed at the [facility] renal clinic Related Data Allergies Allergy/AdvReac Type Severity Reaction Status Date / Time albuterol Allergy Mild Redness of Verified 04/08/18 11:55 Skin Review of Systems Review of Systems Narrative: Pertinent positive and negative findings as per HPI Remainder of review of systems is otherwise unremarkable for Constitutional: Fevers, chills, ENT: No sore throat, neck pain, ear pain CV: palpitations, dyspnea on exertion Respiratory: Cough, wheeze, dyspnea : Dysuria, hematuria, flank pain MS: Muscle weakness, numbness, joint swelling or warmth Skin: Rashes, nonhealing lesions Neuro: Syncope, dizziness, tingling Patient History Medical History HSP (Henoch Schonlein purpura) (Acute) Social History Smoking Status: Former smoker Smoking Status: Former smoker alcohol intake frequency: holidays/special occasions only Substance Use Type: does not use Exam Narrative Exam Narrative: General: Healthy appearing, in no acute distress. Able to give a complete and coherent history. Well-nourished well-developed HEENT: Moist mucous membranes, normal sclera with reactive pupils, Neck: No JVD, supple Respiratory: Lungs are clear to auscultation, no wheezing no rales no rhonchi. Full and symmetrical air movement Chest: Tenderness along costochondral angles bilaterally Cardiac: Regular rate and rhythm no murmurs no bruits Abdomen: Soft nontender good bowel tones, no flank pain Skin: Warm and dry, no rashes Neurologic: Grossly neurologically intact with no obvious asymmetries or abnormalities Extremities: No trauma, well perfused Psych: Cooperative, appropriate insight and affect Initial Vital Signs Initial Vital Signs: Vital Signs Temperature 97.7 F 06/04/20 22:54 Pulse Rate 98 H 06/04/20 22:54 Respiratory Rate 17 06/04/20 22:54 Blood Pressure 120/79 06/04/20 22:54 Pulse Oximetry 95 06/04/20 22:54 Course Orders Ordered: ED Orders 06/04/20 22:54 Urine Culture Stat Urine Microscopic Stat 06/04/20 23:03 Complete Blood Count AUTO DIFF Stat Comprehensive Metabolic Panel Stat Lipase Stat Magnesium Stat Phosphorous Stat Discontinued Medications Sodium Chloride (Normal Saline 0.9%) 1,000 mls @ 1,000 mls/hr IV BOLUS ONE Stop: 06/04/20 23:52 Last Infusion: 06/05/20 00:06 Dose: 0 mls/hr Documented by: Admin: 06/04/20 23:06 Dose: 1,000 mls/hr Documented by: QUYEN Sodium Chloride (Normal Saline 0.9%) 1,000 mls @ 1,000 mls/hr IV BOLUS ONE Stop: 06/05/20 00:15 Last Admin: 06/05/20 00:16 Dose: 1,000 mls/hr Documented by: CODY Ketorolac Tromethamine (Toradol) 15 mg IV NOW ONE Stop: 06/04/20 22:54 Last Admin: 06/04/20 23:06 Dose: 15 mg Documented by: QUYEN Ondansetron HCl (Zofran) 4 mg IV NOW ONE Stop: 06/04/20 22:54 Last Admin: 06/04/20 23:07 Dose: 4 mg Documented by: RMARTIN Ondansetron HCl (Zofran) 4 mg IV NOW ONE Stop: 06/04/20 23:17 Last Admin: 06/04/20 23:19 Dose: Not Given Documented by: QUYEN Vital Signs Vital signs: Vital Signs - 8 hr 06/04/20 22:54 Temperature 97.7 F Pulse Rate 98 H Respiratory Rate 17 Blood Pressure 120/79 Pulse Oximetry 95 Medical Decision Making Lab Data Lab results reviewed: Yes I reviewed the patient's lab results. Result diagrams: 06/04/20 23:03 06/04/20 23:03 Labs: Lab Results 06/04/20 06/04/20 06/04/20 Range/Units 22:54 23:03 23:03 WBC 8.4 (4.5-11.0) X10^3/uL RBC 4.70 (4.0-5.2) X10^6/uL Hgb 13.9 (12.0-16.0) g/dL Hct 41.3 (36-46) % MCV 87.8 (80-100) fL MCH 29.6 (26-34) PG MCHC 33.7 (30-36) % RDW 12.4 (11.6-14.8) % Plt Count 225 (150-400) X10^3/uL Neut % (Auto) 79.7 H (50-75) % Lymph % (Auto) 15.3 L (25-40) % [place] % (Auto) 4.0 (3-14) % Eos % (Auto) 0.5 L (2-4) % Baso % (Auto) 0.5 (0-2) % Neut # (Auto) 6700 (3173-6887) /uL Lymph # (Auto) 1300 (2613-0572) /uL [place] # (Auto) 300 (0-900) /uL Eos # (Auto) 0 (0-450) /uL Baso # (Auto) 0 (0-100) /uL Sodium 140 (137-145) mmol/L Potassium 4.1 (3.4-5.1) mmol/L Chloride 106 (98-107) mmol/L Carbon Dioxide 23 (22-32) mmol/L BUN 10 (7-17) mg/dL Creatinine 0.50 L (0.52-1.04) mg/dL Estimated GFR > 60.0 (>60) mL/min BUN/Creatinine Ratio 20.0 (6-22) Glucose 109 H (70-100) mg/dL Calcium 9.1 (8.4-10.2) mg/dL Phosphorus (2.5-4.5) mg/dL Magnesium 1.9 (1.6-2.3) mg/dL Total Bilirubin 0.2 (0.2-1.3) mg/dL AST 27 (14-36) IU/L ALT 29 (<35) IU/L Alkaline Phosphatase 40 (38-126) U/L Total Protein 8.0 (6.3-8.2) g/dL Albumin 4.5 (3.5-5.0) g/dL Globulin 3.5 (1.7-4.1) g/dL Albumin/Globulin Ratio 1.3 (1.0-2.8) Lipase 60 (23-300) U/L Urine RBC 1-5/hpf (0-5/HPF) Urine WBC 0-1/hpf (0-5/HPF) Ur Squamous Epith Cells 1-5 /hpf (0-5/HPF) Amorphous Sediment 1+ Urine Bacteria Many (>30) H (None) Hyaline Casts 0-1/lpf (None) Ur Culture Indicated? Specimen cultured 06/04/20 Range/Units 23:03 WBC (4.5-11.0) X10^3/uL RBC (4.0-5.2) X10^6/uL Hgb (12.0-16.0) g/dL Hct (36-46) % MCV (80-100) fL MCH (26-34) PG MCHC (30-36) % RDW (11.6-14.8) % Plt Count (150-400) X10^3/uL Neut % (Auto) (50-75) % Lymph % (Auto) (25-40) % [place] % (Auto) (3-14) % Eos % (Auto) (2-4) % Baso % (Auto) (0-2) % Neut # (Auto) (7370-3355) /uL Lymph # (Auto) (8811-7633) /uL [place] # (Auto) (0-900) /uL Eos # (Auto) (0-450) /uL Baso # (Auto) (0-100) /uL Sodium (137-145) mmol/L Potassium (3.4-5.1) mmol/L Chloride (98-107) mmol/L Carbon Dioxide (22-32) mmol/L BUN (7-17) mg/dL Creatinine (0.52-1.04) mg/dL Estimated GFR (>60) mL/min BUN/Creatinine Ratio (6-22) Glucose (70-100) mg/dL Calcium (8.4-10.2) mg/dL Phosphorus 4.7 H (2.5-4.5) mg/dL Magnesium (1.6-2.3) mg/dL Total Bilirubin (0.2-1.3) mg/dL AST (14-36) IU/L ALT (<35) IU/L Alkaline Phosphatase (38-126) U/L Total Protein (6.3-8.2) g/dL Albumin (3.5-5.0) g/dL Globulin (1.7-4.1) g/dL Albumin/Globulin Ratio (1.0-2.8) Lipase (23-300) U/L Urine RBC (0-5/HPF) Urine WBC (0-5/HPF) Ur Squamous Epith Cells (0-5/HPF) Amorphous Sediment Urine Bacteria (None) Hyaline Casts (None) Ur Culture Indicated? Point of Care Testing Test Results Negative Point of care testing: Point of Care Testing Test Results Negative MDM Narrative Medical decision making narrative: 24-year-old woman who is concerned that she is having a recurrent/exacerbation of her HSP. Increasing arthralgias and general malaise over the last week and then after an alcohol drink this evening she has been vomiting significantly. She definitely has tenderness along the costochondral margins consistent with costochondritis. This is improved after single dose of Toradol. Renal function is normal as are the rest of her labs. After the single L of normal saline she still has not spontaneously voided in still feels moderately dehydrated. Will administer a 2nd L and plan on discharge home after that. Will make all of her blood work available to her to take to her nephrology appointment for follow-up of her HSP scheduled in the near future Discharge Plan Departure Patient Disposition: Home Clinical Impression: HSP (Henoch Schonlein purpura), Acute vomiting, Costochondritis Instructions: DI for Dehydration -- Adult Activity Restrictions/Additional Instructions: Thank you for coming in today Your lab work was very reassuring Your given 2 L of normal saline to help with hydration after your vomiting this evening. I think it would be a good idea for you to continue to avoid alcohol to avoid episodes like tonight in the future The chest pain that your having is costal chondritis and typically responds best to nonsteroidals. Unfortunately, you cannot take nonsteroidals. Please try Tylenol every 6 hours as needed for that discomfort. When you do see your kidney doctor at the [facility], please bring up the slight swallowing difficulties that you have been noticing. At this time it is safe for you to go home but if you have recurrent symptoms or worsening problems please feel free to return to the emergency department
[2020-06-04 22:54] VITALS: BP 120/79; PULSE 98; RESP 17; TEMP 36.5; O2SAT 95; BMI 37.0
[2020-06-04 23:06] VITALS: PULSE 102; O2SAT 97
[2020-06-04] MEDS: SODIUM CHLORIDE 0.9% 1,000 ML 1000 ML IV (23:06)
[2020-06-04] MEDS: KETOROLAC 60 MG/2 ML VIAL 15 MG IV (23:06)
[2020-06-04] MEDS: ONDANSETRON 4 MG/2 ML INJ IV (23:07)
[2020-06-04 23:13] LABS: Amorphous Sediment Urine 1+; Bacteria Urine Many (>30); RBC Urine 1-5/HPF (0-5/HPF); Squamous Epithelial Cell Urine 1-5 /HPF (0-5/HPF); WBC Urine 0-1/HPF (0-5/HPF)
[2020-06-04 23:14] LABS: Culture Indicated Urine Specimen Cultured; Hyaline Casts Urine 0-1/LPF
[2020-06-04 23:16] LABS: Add Manual Diff / Slide Review NO; Basophils Absolute Auto 0 /uL (0-100); Basophils Percent Auto 0.5 % (0-2); Eosinophils Absolute Auto 0 /uL (0-450); Eosinophils Percent Auto 0.5 % (2-4); Hematocrit 41.3 % (36-46); Hemoglobin 13.9 g/dL (12.0-16.0); Lymphocytes Absolute Auto 1300 /uL (1100-4500); Lymphocytes Percent Auto 15.3 % (25-40); Mean Corpuscular HGB Conc 33.7 % (30-36); Mean Corpuscular Hemoglobin 29.6 PG (26-34); Mean Corpuscular Volume 87.8 fL (80-100); Monocytes Absolute Auto 300 /uL (0-900); Neutrophils Absolute Auto 6700 /uL (1500-7000); Neutrophils Percent Auto 79.7 % (50-75); Platelet Count 225 X10^3/uL (150-400); Red Cell Distribution Width 12.4 % (11.6-14.8); White Blood Cell Count 8.4 X10^3/uL (4.5-11.0)
[2020-06-04 23:23] LABS: Phosphorous 4.7 mg/dL (2.5-4.5)
[2020-06-04 23:25] LABS: Alanine Aminotransferase 29 IU/L (<35); Albumin 4.5 g/dL (3.5-5.0); Albumin Globulin Ratio 1.3 (1.0-2.8); Alkaline Phosphatase 40 U/L (38-126); Aspartate Aminotransferase 27 IU/L (14-36); Bilirubin Total 0.2 mg/dL (0.2-1.3); Blood Urea Nitrogen 10 mg/dL (7-17); Calcium 9.1 mg/dL (8.4-10.2); Carbon Dioxide 23 mmol/L (22-32); Chloride 106 mmol/L (98-107); Estimated Glomerular Filt Rate > 60.0 mL/min (>60); Globulin 3.5 g/dL (1.7-4.1); Glucose 109 mg/dL (70-100); HEMOLYSIS < 15 (0-50); Lipase 60 U/L (23-300); Magnesium 1.9 mg/dL (1.6-2.3); Potassium 4.1 mmol/L (3.4-5.1); Sodium 140 mmol/L (137-145)
[2020-06-04 23:30] VITALS: BP 104/63; PULSE 84; O2SAT 98
[2020-06-05] VITALS: BP 90/54; PULSE 79; O2SAT 97
[2020-06-05] MEDS: SODIUM CHLORIDE 0.9% 1,000 ML 1000 ML IV (00:16)
[2020-06-05 00:30] VITALS: BP 96/55; PULSE 86; O2SAT 99
[2020-06-05 01:00] VITALS: BP 85/50; PULSE 72; O2SAT 97
[2020-06-05 01:04] VITALS: BP 101/57; PULSE 87; O2SAT 98
[2020-06-05 01:30] VITALS: BP 104/61; PULSE 77; O2SAT 97
== END 2020-06-05 01:49 | disposition home or self-care (01) ==
PROVIDERS: Emergency Provider Emergency Medicine
DX: D69.0 Allergic purpura (principal); R11.10 Vomiting, unspecified; M94.0 Chondrocostal junction syndrome [Tietze]; R13.10 Dysphagia, unspecified
CPT/HCPCS: 36415; 80053; 81015; 81025; 83690; 83735; 84100; 85025; 87086; 93005; 96361; 96374; 96375; 99284; J1885; J2405

== ENCOUNTER → 2020-08-31 10:19 | Outpatient (CLI) | payer OTHER, SELFPAY ==
[2020-08-31 10:39] LABS: Add Manual Diff / Slide Review NO; Basophils Absolute Auto 0 /uL (0-100); Basophils Percent Auto 0.6 % (0-2); Eosinophils Absolute Auto 300 /uL (0-450); Eosinophils Percent Auto 4.2 % (2-4); Hematocrit 39.3 % (36-46); Hemoglobin 13.4 g/dL (12.0-16.0); Lymphocytes Absolute Auto 2000 /uL (1100-4500); Lymphocytes Percent Auto 32.6 % (25-40); Mean Corpuscular HGB Conc 34.2 % (30-36); Mean Corpuscular Hemoglobin 29.8 PG (26-34); Mean Corpuscular Volume 87.1 fL (80-100); Monocytes Absolute Auto 500 /uL (0-900); Monocytes Percent Auto 8.6 % (3-14); Neutrophils Absolute Auto 3300 /uL (1500-7000); Platelet Count 230 X10^3/uL (150-400); Red Blood Cell Count 4.51 X10^6/uL (4.0-5.2); Red Cell Distribution Width 12.9 % (11.6-14.8); White Blood Cell Count 6.1 X10^3/uL (4.5-11.0)
[2020-08-31 10:40] LABS: Appearance Urine UA CLEAR; Bilirubin Urine UA NEGATIVE (NEGATIVE); Color Urine UA YELLOW; Glucose Urine UA NEGATIVE (Negative); Ketones Urine UA NEGATIVE (NEGATIVE); Leukocyte Esterase Urine UA NEGATIVE (NEGATIVE); Nitrite Urine UA NEGATIVE (Negative); Occult Blood Urine UA 3+ (Negative); Protein Urine UA 1+ (Negative); Urobilinogen Urine UA 0.2 E.U./dL (0.2)
[2020-08-31 10:50] LABS: Albumin 4.2 g/dL (3.5-5.0); BUN Creatinine Ratio 25.5 (6-22); Blood Urea Nitrogen 14 mg/dL (7-17); Carbon Dioxide 28 mmol/L (22-32); Chloride 105 mmol/L (98-107); Estimated Glomerular Filt Rate > 60.0 mL/min (>60); Glucose 94 mg/dL (70-100); HEMOLYSIS < 15 (0-50); Potassium 4.2 mmol/L (3.4-5.1); Sodium 138 mmol/L (137-145)
[2020-08-31 10:52] LABS: RBC Urine 1-5/HPF (0-5/HPF); Squamous Epithelial Cell Urine 1-5 /HPF (0-5/HPF); WBC Urine 0-1/HPF (0-5/HPF)
[2020-08-31 10:53] LABS: Bacteria Urine Moderate (10-30); Culture Indicated Urine Cult Not Indicated
[2020-08-31 11:18] LABS: Creatinine Urine Random 122.7 mg/dL; Protein (Total) Urine Random 22 mg/dL (0-12); Protein Creatinine Ratio Urine 0.17 GRAM/24H
== END ==
PROVIDERS: PCP Family Medicine; Referring Provider Family Medicine; Visit Provider Internal Medicine Nephrology
DX: D69.0 Allergic purpura (principal); N08 Glomerular disorders in diseases classified elsewhere
CPT/HCPCS: 36415; 80069; 81001; 82570; 84156; 85025

== ENCOUNTER → 2020-09-09 10:37 | Outpatient (CLI) | payer OTHER, SELFPAY ==
[2020-09-09 11:19] LABS: C-Reactive Protein Quant 0.7 mg/dL (<1.0)
[2020-09-09 11:21] LABS: Rheumatoid Factor < 8.6 IU/mL (<12.0)
[2020-09-09 11:28] LABS: Erythrocyte Sedimentation Rate 21 MM/HR (0-20)
== END ==
PROVIDERS: PCP Family Medicine; Referring Provider Nurse Practitioner; Visit Provider Nurse Practitioner
DX: M25.439 Effusion, unspecified wrist (principal)
CPT/HCPCS: 36415; 85651; 86140; 86430

== ENCOUNTER 2022-03-26 20:41 | Emergency (ER) | payer OTHER, SELFPAY ==
[2022-03-26 20:44] VITALS: BP 137/81; PULSE 97; RESP 19; TEMP 37; O2SAT 97; BMI 37.0
--- NOTE | 2022-03-26 21:36 | ED_ITS ---
HPI - Abdominal Pain General Chief Complaint: Abdominal Pain Stated Complaint: Fell off ramin onto left side Time Seen by Provider: 03/26/22 20:58 Source: patient Mode of arrival: Ambulatory History of Present Illness HPI narrative: 26-year-old female smoker with out any significant medical history presents for evaluation of a small tender painful lump on her left flank. She states that she noticed it 1st yesterday and it was small, slightly larger than the size of the tip of her finger but is a little bit bigger today and tender. She denies any fever or chills nor nausea, vomiting or diarrhea. She denies any dysuria, frequency or urgency. She states that about 1 week ago she was ramin diving and landed awkwardly on her left side but did not have any issues until yesterday. She has no chest pain or shortness of breath, hematuria or bowel issues Related Data Previous Rx's Medication Instructions Recorded cyclobenzaprine 5 mg tablet 5 mg PO TID PRN muscle spasm #14 08/30/21 tabs doxycycline hyclate 100 mg tablet 100 mg PO BID #20 tabs 03/26/22 Allergies Allergy/AdvReac Type Severity Reaction Status Date / Time albuterol Allergy Mild Redness of Verified 03/26/22 20:51 Skin Review of Systems Review of Systems Narrative: GENERAL: Denies chills, fatigue, malaise, fever, sweats. HEENT: Denies sinus pain, ear pain, sore throat, difficulty swallowing, dizziness. RESPIRATORY: Denies dyspnea, cough, wheezing, hemoptysis, sputum. CARDIOVASCULAR: Denies chest pain, palpitations, orthopnea, edema, GASTROINTESTINAL: Denies nausea, vomiting, abdominal pain, diarrhea, constipation, melena. : Denies dysuria, frequency, incontinence, hematuria, urinary retention. MUSCULOSKELETAL: denies weakness, joint pain, or bony pain SKIN: see HPI NEUROLOGIC: Denies weakness, headache, numbness, change in speech, confusion, seizures, incoordination. PSYCHIATRIC: No concerning psychosocial issues. 12 point review of systems is negative except for those stated above Patient History Medical History (Updated 03/26/22 @ 21:49 by Kiran Rodriguez DO) HSP (Henoch Schonlein purpura) Social History Smoking Status: Current some day smoker Smoking Status: Current some day smoker tobacco type: cigarettes alcohol intake frequency: holidays/special occasions only Substance Use Type: does not use Exam Narrative Exam Narrative: GENERAL: [26] year old patient appears stated age. Well-developed patient, in mild distress. HEAD: Atraumatic. Normocephalic. EYES: Pupils equal round and reactive. Extraocular motions intact. No scleral icterus. No injection or drainage. ENT: Nose without bleeding, purulent drainage. Throat without erythema, to nsillar hypertrophy or exudate. Airway patent. NECK: Trachea midline. Non tender CARDIOVASCULAR: Regular rate and rhythm without murmurs, gallops, or rubs. RESPIRATORY: Clear to auscultation. Breath sounds equal bilaterally. No wheezes, rales, or rhonchi. GASTROINTESTINAL: Abdomen soft, non-tender, nondistended. EXTREMITIES: No edema or joint tenderness. BACK: Nontender without deformity or crepitance. No flank tenderness. NEURO: AOx3. SKIN: Small, 2 x 1 cm erythematous, tender area of induration on left flank Initial Vital Signs Initial Vital Signs: Vital Signs Temperature 98.6 F 03/26/22 20:44 Pulse Rate 97 H 03/26/22 20:44 Respiratory Rate 19 03/26/22 20:44 Blood Pressure 137/81 03/26/22 20:44 Pulse Oximetry 97 03/26/22 20:44 Oxygen Delivery Method 03/26/22 20:44 Course Orders Ordered: Discontinued Medications Doxycycline Hyclate (Doxycycline Hyclate 100 Mg Tablet) 100 mg PO NOW ONE Stop: 03/26/22 21:48 Last Admin: 03/26/22 22:00 Dose: 100 mg Documented By: Vital Signs Vital signs: Vital Signs - 8 hr 03/26/22 20:44 Temperature 98.6 F Pulse Rate 97 H Respiratory Rate 19 Blood Pressure 137/81 Pulse Oximetry 97 Oxygen Delivery Method Room Air MDM - Abdominal Pain Lab Data Point of care testing: Point of Care Testing Test Results Negative Urine Dip Bedside Urine Glucose Negative Bedside Urine Bilirubin - Negative Bedside Urine Ketone - Negative Urine Specific [place] 1.020 Bedside Urine Occult Blood - Negative Bedside Urine pH 6 Bedside Urine Protein + 30 Bedside Urine Urobilinogen -.2 Bedside Urine Nitrite - Negative Bedside Urine Leukocytes - Negative Esterase Discharge Plan Departure Patient Disposition: Home Clinical Impression: Cellulitis Instructions: DI for Cellulitis -- Adult Activity Restrictions/Additional Instructions: *You have been diagnosed with [cellulitis with possible early abscess on your left flank. As we discussed it is not large enough to be drained and appropriate treatment for now is antibiotics and warm compresses.] *What to do: *Please continue to take your regular medications as directed. [x ] New medication prescriptions [facility] your pharmacy: [facility] [ ] New medication written as a paper prescription [ ] No new medications given *Please follow up with your primary care provider in 2-3 days, call for an appointment. Let them know you were seen in the Emergency Department and that we ask that you be seen in follow up. We will electronically transmit a record of today's note if your PCP is in our system *If you do not have a primary care provider please contact the [facility] Resource line at [phone]. They will ask some questions about your medical history and help get you set up with a doctor in the community. *Return to Emergency Department if you should have any new, worsening or concerning symptoms, such as [fever greater than 101 F, shaking chills, worsening pain, persistent vomiting or other bothersome symptoms] Prescriptions: New doxycycline hyclate 100 mg tablet 100 mg PO BID Qty: 20 0RF No Action cyclobenzaprine 5 mg tablet 5 mg PO TID PRN (Reason: muscle spasm) Qty: 14 0RF Referrals: Ashwini Ortega MD [Primary Care Provider] - Visit Report Forms: Patient Portal/API
[2022-03-26] MEDS: DOXYCYCLINE HYCLATE 100 MG TABLET PO (22:00)
== END 2022-03-26 22:02 | disposition home or self-care (01) ==
PROVIDERS: Emergency Provider Emergency Medicine; PCP Family Medicine
DX: L03.311 Cellulitis of abdominal wall (principal)
CPT/HCPCS: 81003; 81025; 99283

== ENCOUNTER → 2022-04-28 16:26 | Outpatient (CLI) | payer OTHER, SELFPAY ==
[2022-04-28 17:39] LABS: Add Manual Diff / Slide Review NO; Basophils Absolute Auto 0 /uL (0-100); Basophils Percent Auto 0.3 % (0-2); Eosinophils Absolute Auto 0 /uL (0-450); Eosinophils Percent Auto 0.1 % (2-4); Hemoglobin 13.8 g/dL (12.0-16.0); Lymphocytes Absolute Auto 1100 /uL (1100-4500); Lymphocytes Percent Auto 10.8 % (25-40); Mean Corpuscular HGB Conc 34.5 % (30-36); Mean Corpuscular Hemoglobin 30.2 PG (26-34); Mean Corpuscular Volume 87.5 fL (80-100); Monocytes Absolute Auto 400 /uL (0-900); Monocytes Percent Auto 3.7 % (3-14); Neutrophils Absolute Auto 9000 /uL (1500-7000); Neutrophils Percent Auto 85.1 % (50-75); Platelet Count 233 X10^3/uL (150-400); Red Blood Cell Count 4.57 X10^6/uL (4.0-5.2); Red Cell Distribution Width 14.1 % (11.6-14.8); White Blood Cell Count 10.6 X10^3/uL (4.5-11.0)
[2022-04-28 17:57] LABS: Alanine Aminotransferase 31 IU/L (<35); Albumin 4.5 g/dL (3.5-5.0); Albumin Globulin Ratio 1.3 (1.0-2.8); Alkaline Phosphatase 47 U/L (38-126); Aspartate Aminotransferase 30 IU/L (14-36); BUN Creatinine Ratio 20.3 (6-22); Bilirubin Total 0.4 mg/dL (0.2-1.3); Blood Urea Nitrogen 14 mg/dL (7-17); C-Reactive Protein Quant 1.1 mg/dL (<1.0); Calcium 9.2 mg/dL (8.4-10.2); Carbon Dioxide 24 mmol/L (22-32); Chloride 103 mmol/L (98-107); Estimated Glomerular Filt Rate > 60 mL/min (>60); Globulin 3.5 g/dL (1.7-4.1); Glucose 110 mg/dL (70-100); HEMOLYSIS < 15 (0-50); Potassium 4.1 mmol/L (3.4-5.1); Sodium 136 mmol/L (137-145)
[2022-04-28 18:21] LABS: Erythrocyte Sedimentation Rate 14 MM/HR (0-20)
== END ==
PROVIDERS: PCP Family Medicine; Referring Provider Family Medicine; Visit Provider Family Medicine
DX: D69.0 Allergic purpura (principal); L02.91 Cutaneous abscess, unspecified
CPT/HCPCS: 36415; 80053; 85025; 85651; 86140

== ENCOUNTER → 2022-07-11 12:54 | Outpatient (CLI) | payer OTHER, SELFPAY ==
[2022-07-11 14:40] LABS: Influenza A - CEPHEID Flu A POSITIVE (NEGATIVE); Influenza B - CEPHEID Flu B NEGATIVE (NEGATIVE); Respiratory Syncytial Virus Negative (Negative)
[2022-07-11 14:52] LABS: COVID-19 CEPHEID 4-PLEX PCR Negative (Negative)
== END ==
PROVIDERS: PCP Family Medicine; Visit Provider Nurse Practitioner Family
DX: R05.9 Cough, unspecified (principal)
CPT/HCPCS: 0241U

== ENCOUNTER → 2023-08-15 | Outpatient (CLI) | payer OTHER, SELFPAY ==
--- NOTE | 2023-08-15 10:36 | DI.RAD.S_ITS ---
PROCEDURE: XR CERVICAL SPINE 4V OR 5V INDICATIONS: FALL TECHNIQUE: 5 views of the cervical spine acquired. COMPARISON: [facility], CR, CLAVICLE LEFT 2 VIEWS, 07/01/2013, 15:36. FINDINGS: Bones: Lateral view extends from the skull base to C7. No acute fracture or traumatic subluxation. Straightening of the normal cervical lordosis. Oblique images demonstrate no bony foraminal stenoses. Soft tissues: No prevertebral soft tissue swelling. Visualized lungs are clear. IMPRESSION: No acute fracture or traumatic subluxation. If clinical symptoms persist, consider cross-sectional imaging for further evaluation. Dictated by: Leonardo Andres M.D. on 08/15/2023 at 17:53 Approved by: Leonardo Andres M.D. on 08/15/2023 at 17:54
--- NOTE | 2023-08-15 10:36 | DI.RAD.S_ITS ---
PROCEDURE: XR ELBOW LT MIN 3V INDICATIONS: FALL TECHNIQUE: 3 views of the elbow were acquired. COMPARISON: None. FINDINGS: Bones: No fractures or dislocations. No suspicious bony lesions. Soft tissues: No elbow joint effusion. No suspicious soft tissue calcifications. IMPRESSION: No acute bony abnormality or significant joint effusion. If there is high clinical suspicion for a radiographically occult fracture, consider repeat radiograph in 7-10 days versus cross-sectional imaging. Dictated by: Leonardo Andres M.D. on 08/15/2023 at 15:30 Approved by: Leonardo Andres M.D. on 08/15/2023 at 15:34
--- NOTE | 2023-08-15 10:36 | DI.RAD.S_ITS ---
PROCEDURE: XR SHOULDER LT MIN 2V INDICATIONS: FALL TECHNIQUE: 3 views of the shoulder were acquired. COMPARISON: [facility], , SHOULDER MINIMUM 2VIEW RIGHT, 07/01/2013, 16:42. FINDINGS: Bones: No fractures or dislocations. Normal glenohumeral alignment. Acromioclavicular and coracoclavicular intervals are maintained. No suspicious bony lesions. Visualized ribs appear intact. Soft tissues: No suspicious soft tissue calcifications. IMPRESSION: No acute bony abnormality. Dictated by: Leonardo Andres M.D. on 08/15/2023 at 15:34 Approved by: Leonardo Andres M.D. on 08/15/2023 at 15:35
== END ==
LOC: RAD 10:34
PROVIDERS: PCP Family Medicine; Referring Provider Family Medicine; Visit Provider Family Medicine
DX: M25.512 Pain in left shoulder (principal); M54.2 Cervicalgia; M25.522 Pain in left elbow
CPT/HCPCS: 72050; 73030; 73070

== ENCOUNTER 2024-05-01 12:28 | Emergency (ER) | payer OTHER, SELFPAY ==
[2024-05-01 12:39] VITALS: BP 117/80; PULSE 85; RESP 18; TEMP 36.9; O2SAT 98; BMI 38.7
[2024-05-01] MEDS: ONDANSETRON 4 MG/2 ML INJ IV (13:04)
[2024-05-01] MEDS: SODIUM CHLORIDE 0.9% 1,000 ML 1000 ML IV (13:07)
[2024-05-01 13:08] LABS: Add Manual Diff / Slide Review NO; Basophils Absolute Auto 0 /uL (0-100); Basophils Percent Auto 0.3 % (0-2); Eosinophils Absolute Auto 100 /uL (0-450); Eosinophils Percent Auto 0.8 % (2-4); Hematocrit 39.1 % (36-46); Hemoglobin 13.5 g/dL (12.0-16.0); Lymphocytes Absolute Auto 2100 /uL (1100-4500); Lymphocytes Percent Auto 29.2 % (25-40); Mean Corpuscular HGB Conc 34.6 % (30-36); Mean Corpuscular Hemoglobin 30.5 PG (26-34); Mean Corpuscular Volume 88.1 fL (80-100); Monocytes Absolute Auto 700 /uL (0-900); Monocytes Percent Auto 9.6 % (3-14); Neutrophils Absolute Auto 4300 /uL (1500-7000); Neutrophils Percent Auto 60.1 % (50-75); Platelet Count 264 X10^3/uL (150-400); Red Blood Cell Count 4.43 X10^6/uL (4.0-5.2); Red Cell Distribution Width 12.6 % (11.6-14.8); White Blood Cell Count 7.1 X10^3/uL (4.5-11.0)
[2024-05-01 13:23] LABS: Alanine Aminotransferase 30 IU/L (<35); Albumin 4.4 g/dL (3.5-5.0); Albumin Globulin Ratio 1.4 (1.0-2.8); Alkaline Phosphatase 43 U/L (38-126); Aspartate Aminotransferase 25 IU/L (14-36); BUN Creatinine Ratio 16.7 (6-22); Bilirubin Total 0.4 mg/dL (0.2-1.3); Blood Urea Nitrogen 9 mg/dL (7-17); Calcium 9.3 mg/dL (8.4-10.2); Carbon Dioxide 24 mmol/L (22-32); Chloride 103 mmol/L (98-107); Estimated Glomerular Filt Rate > 60 mL/min (>60); Globulin 3.2 g/dL (1.7-4.1); Glucose 96 mg/dL (70-100); HEMOLYSIS < 15 (0-50); Lipase 72 U/L (23-300); Sodium 135 mmol/L (137-145); Total Protein 7.6 g/dL (6.3-8.2)
--- NOTE | 2024-05-01 13:47 | DI.CT.S_ITS ---
PROCEDURE: CT ABDOMEN PELVIS W CON INDICATIONS: Abd pain, diarrhea and nausea TECHNIQUE: After the administration of intravenous contrast, axial sections acquired from the lung bases to the pubic symphysis. Coronal and sagittal reformats were performed. For radiation dose reduction, the following was used: automated exposure control, adjustment of mA and/or kV according to patient size. COMPARISON: None. FINDINGS: Image quality: Diagnostic. Approximately 1.8 cm low-attenuation right ovarian/adnexal cyst versus follicle or other cystic lesion. Normal nondilated appendix. No abnormally dilated small bowel or abnormal bowel wall thickening, no bowel obstruction. No free gas, no abnormal free fluid. Lower Chest: No significant findings. ABDOMEN: Liver: No solid mass. Gallbladder: No radiopaque gallstones or wall thickening. Biliary ducts: No biliary dilation. Pancreas: No ductal dilation. Spleen: Size is within normal limits. Adrenal Glands: No adrenal nodules. Kidneys and Ureters: No hydronephrosis. No solid mass. No complex renal cystic lesion which requires follow up. Stomach and Bowel: Normal colonic caliber, without significant wall thickening. Ventral Wall: No significant ventral hernia. Abdominal Nodes: No retroperitoneal or mesenteric adenopathy by size criteria. Vessels: Aorta and inferior vena cava are normal in size. PELVIS: Pelvic Organs: Unremarkable. Bladder: No bladder wall thickening, accounting for underdistention. Pelvic Nodes: No enlarged lymph nodes. Miscellaneous: No inguinal hernias are seen. IMPRESSION: 1.8 cm right ovarian/adnexal cyst versus follicle or other cystic lesion. Normal nondilated appendix. No abnormally dilated small bowel or abnormal bowel wall thickening, no bowel obstruction. Dictated by: Wilmar Reed M.D. on 05/01/2024 at 14:03 Approved by: Wilmar Reed M.D. on 05/01/2024 at 14:09
--- NOTE | 2024-05-01 14:09 | ED.ABDPAIN ---
HPI - Abdominal Pain General Chief Complaint: Abdominal Pain Stated Complaint: sent by PCPkandis px Time Seen by Provider: 05/01/24 13:27 Source: patient Mode of arrival: Ambulatory History of Present Illness HPI narrative: Patient is sent here by primary care for evaluation of 3 weeks of lower abdominal cramping discomfort and watery diarrhea. No known sick contacts. No black or bloody stools. Patient in no distress. Eating makes it worse. Pain does not radiate. Has had nausea. No urinary complaints. Related Data Previous Rx's Medication Instructions Recorded cyclobenzaprine 5 mg tablet 5 mg PO TID PRN muscle spasm #14 08/30/21 tabs doxycycline hyclate 100 mg tablet 100 mg PO BID #20 tabs 03/26/22 benzonatate 100 mg capsule 100 mg PO BID PRN cough #20 caps 07/11/22 ondansetron 4 mg disintegrating 4 mg PO Q8H PRN nausea and 05/01/24 tablet vomiting #10 tabs pantoprazole 40 mg tablet,delayed 40 mg PO DAILY #30 tabs 05/01/24 release (Protonix) Allergies Allergy/AdvReac Type Severity Reaction Status Date / Time albuterol Allergy Mild Redness of Verified 05/01/24 12:43 Skin Review of Systems Review of Systems Narrative: GENERAL: negative chills, fatigue, malaise, fever, sweats. HEENT: negative sinus pain, ear pain, sore throat RESPIRATORY: negative dyspnea, cough CARDIOVASCULAR: negative chest pain, palpitations GASTROINTESTINAL: negative nausea, vomiting, positive diarrhea positive abdominal pain : negative dysuria, frequency, hematuria MUSCULOSKELETAL: negative muscle or bony pain SKIN: negative rash, skin lesions NEUROLOGIC: negative weakness, numbness ROS Unobtainable: All systems reviewed & are unremarkable except as noted in HPI and below Patient History Medical History (Updated 05/16/24 @ 00:00 by ) HSP (Henoch Schonlein purpura) Social History Smoking Status: Former smoker Smoking Status: Former smoker tobacco type: cigarettes alcohol intake frequency: holidays/special occasions only Substance Use Type: does not use Exam Narrative Exam Narrative: GENERAL: in no distress, not toxic not dyspneic HEAD: Normocephalic. EYES: Pupils equal round ENT: Mucous membranes moist. NECK: Trachea midline. CARDIOVASCULAR: Regular rate and rhythm RESPIRATORY: Clear to auscultation. Breath sounds equal bilaterally. No wheezes, rales, or rhonchi. GASTROINTESTINAL: Abdomen soft, non-tender no peritoneal signs no guarding no rebound EXTREMITIES: No gross deformities. BACK: No flank tenderness. NEURO: AOx4. SKIN: Warm and dry PSYCH: Not anxious, is cooperative Initial Vital Signs Initial Vital Signs: Vital Signs Temperature 98.4 F 05/01/24 12:39 Pulse Rate 85 05/01/24 12:39 Respiratory Rate 18 05/01/24 12:39 Blood Pressure 117/80 05/01/24 12:39 Pulse Oximetry 98 05/01/24 12:39 Oxygen Delivery Method Room Air 05/01/24 12:39 Course Orders Ordered: Discontinued Medications Sodium Chloride (Normal Saline 0.9%) 1,000 mls @ 1,000 mls/hr IV BOLUS ONE Stop: 05/01/24 13:52 Last Infusion: 05/01/24 15:40 Dose: Infused Documented By: Admin: 05/01/24 13:07 Dose: 1,000 mls/hr Documented By: EREN Ketorolac Tromethamine (Ketorolac 30 Mg/Ml Vial) 15 mg IV NOW ONE Stop: 05/01/24 14:12 Last Admin: 05/01/24 14:26 Dose: 15 mg Documented By: SREEKANTH Ondansetron HCl (Ondansetron 4 Mg/2 Ml Inj) 4 mg IV NOW PRN PRN Reason: Nausea And Vomiting Last Admin: 05/01/24 13:04 Dose: 4 mg Documented By: EREN Ondansetron HCl (Ondansetron 4 Mg Odt) 4 mg PO NOW PRN PRN Reason: Nausea And Vomiting Vital Signs Vital signs: Vital Signs - 8 hr 05/01/24 12:39 05/01/24 14:20 05/01/24 15:42 Temperature 98.4 F Pulse Rate 85 83 83 Respiratory Rate 18 12 12 Blood Pressure 117/80 109/77 103/66 Pulse Oximetry 98 99 98 Oxygen Delivery Method Room Air MDM - Abdominal Pain Lab Data 05/01/24 13:00 05/01/24 13:00 Labs: Lab Results 05/01/24 05/01/24 Range/Units 13:00 14:20 WBC 7.1 (4.5-11.0) X10^3/uL RBC 4.43 (4.0-5.2) X10^6/uL Hgb 13.5 (12.0-16.0) g/dL Hct 39.1 (36-46) % MCV 88.1 (80-100) fL MCH 30.5 (26-34) PG MCHC 34.6 (30-36) % RDW 12.6 (11.6-14.8) % Plt Count 264 (150-400) X10^3/uL Neut % (Auto) 60.1 (50-75) % Lymph % (Auto) 29.2 (25-40) % [place] % (Auto) 9.6 (3-14) % Eos % (Auto) 0.8 L (2-4) % Baso % (Auto) 0.3 (0-2) % Neut # (Auto) 4300 (4972-5193) /uL Lymph # (Auto) 2100 (0687-4037) /uL [place] # (Auto) 700 (0-900) /uL Eos # (Auto) 100 (0-450) /uL Baso # (Auto) 0 (0-100) /uL Sodium 135 L (137-145) mmol/L Potassium 4.0 (3.4-5.1) mmol/L Chloride 103 (98-107) mmol/L Carbon Dioxide 24 (22-32) mmol/L BUN 9 (7-17) mg/dL Creatinine 0.54 (0.52-1.04) mg/dL Estimated GFR > 60 (>60) mL/min BUN/Creatinine Ratio 16.7 (6-22) Glucose 96 (70-100) mg/dL Calcium 9.3 (8.4-10.2) mg/dL Total Bilirubin 0.4 (0.2-1.3) mg/dL AST 25 (14-36) IU/L ALT 30 (<35) IU/L Alkaline Phosphatase 43 (38-126) U/L Total Protein 7.6 (6.3-8.2) g/dL Albumin 4.4 (3.5-5.0) g/dL Globulin 3.2 (1.7-4.1) g/dL Albumin/Globulin Ratio 1.4 (1.0-2.8) Lipase 72 (23-300) U/L Chlamy pneumoniae PCR Not detected (Not Detect) Adenovirus (PCR) Not detected (Not Detect) B.parapertussis DNA PCR Not detected (Not Detecte) Coronavirus OC43 (PCR) Not detected (Not Detect) Coronavirus HKU1 (PCR) Not detected (Not Detect) Coronavirus 229E (PCR) Not detected (Not Detect) SARS-CoV-2 (PCR) Not detected (Not Detecte) Coronavirus NL63 (PCR) Not detected (Not Detect) Human Metapneumovir PCR Not detected (Not Detect) Influenza Type A (PCR) Not detected (Not Detect) Influenza Type B (PCR) Not detected (Not Detect) M. pneumoniae (PCR) Not detected (Not Detect) Parainfluenza 1 (PCR) Not detected (Not Detect) Parainfluenza 2 (PCR) Not detected (Not Detect) Parainfluenza 3 (PCR) Not detected (Not Detect) Parainfluenza 4 (PCR) Not detected (Not Detect) RSV (PCR) Not detected (Not Detect) Entero/Rhino (PCR) Not detected (Not Detect) Point of care testing: Point of Care Testing Test Results Negative Urine Dip Bedside Urine Glucose Negative Bedside Urine Bilirubin - Negative Bedside Urine Ketone - Negative Urine Specific [place] 1.010 Bedside Urine Occult Blood - Negative Bedside Urine pH 6 Bedside Urine Protein - Negative Bedside Urine Urobilinogen - Negative Bedside Urine Nitrite - Negative Bedside Urine Leukocytes - Negative Esterase Imaging Data CT scan - abdomen/pelvis: Radiologist's Impression: [place] [address] CT Scan Report Signed Patient: Riana De La Garza MR#: [id number] : 1995 Acct:[id number] Age/Sex: 28 / F Date of Service: 05/01/24 Loc: ED Accession Number: [id number] Procedure: CT abdomen pelvis w con Ordering Provider: Aidan Collins MD PROCEDURE: CT ABDOMEN PELVIS W CON INDICATIONS: Abd pain, diarrhea and nausea TECHNIQUE: After the administration of intravenous contrast, axial sections acquired from the lung bases to the pubic symphysis. Coronal and sagittal reformats were performed. For radiation dose reduction, the following was used: automated exposure control, adjustment of mA and/or kV according to patient size. COMPARISON: None. FINDINGS: Image quality: Diagnostic. Approximately 1.8 cm low-attenuation right ovarian/adnexal cyst versus follicle or other cystic lesion. Normal nondilated appendix. No abnormally dilated small bowel or abnormal bowel wall thickening, no bowel obstruction. No free gas, no abnormal free fluid. Lower Chest: No significant findings. ABDOMEN: Liver: No solid mass. Gallbladder: No radiopaque gallstones or wall thickening. Biliary ducts: No biliary dilation. Pancreas: No ductal dilation. Spleen: Size is within normal limits. Adrenal Glands: No adrenal nodules. Kidneys and Ureters: No hydronephrosis. No solid mass. No complex renal cystic lesion which requires follow up. Stomach and Bowel: Normal colonic caliber, without significant wall thickening. Ventral Wall: No significant ventral hernia. Abdominal Nodes: No retroperitoneal or mesenteric adenopathy by size criteria. Vessels: Aorta and inferior vena cava are normal in size. PELVIS: Pelvic Organs: Unremarkable. Bladder: No bladder wall thickening, accounting for underdistention. Pelvic Nodes: No enlarged lymph nodes. Miscellaneous: No inguinal hernias are seen. IMPRESSION: 1.8 cm right ovarian/adnexal cyst versus follicle or other cystic lesion. Normal nondilated appendix. No abnormally dilated small bowel or abnormal bowel wall thickening, no bowel obstruction. Dictated by: Wilmar Reed M.D. on 05/01/2024 at 14:03 Approved by: Wilmar Reed M.D. on 05/01/2024 at 14:09 [facility] Narrative Medical decision making narrative: Patient is sent here by primary care for evaluation of 3 weeks of lower abdominal cramping discomfort and watery diarrhea. No known sick contacts. No black or bloody stools. Patient in no distress. Eating makes it worse. Pain does not radiate. Has had nausea. No urinary complaints. After history and exam CBC CMP urinalysis test CT abdomen pelvis GI panel respiratory panel normal saline Zofran [facility] Medical records reviewed: No recent visit for this complaint Differential considered: Includes but not limited to colitis diverticulitis viral syndrome Lab Test results independently reviewed as above. Pertinent findings: WBC 7.1 hemoglobin 13.5 hematocrit 39.1 lipase 72 sodium 135 potassium 4.0 BUN 9 creatinine 0.54 AST 25 ALT 30 Imaging studies independently reviewed: CT abdomen pelvis normal nondilated appendix. No bowel obstruction. No abnormal dilated small-bowel or abnormal bowel wall thickening, 1.8 cm right ovarian adnexal cyst Consultations: None indicated at this time Treatments: Normal saline Zofran Re-evaluations: 4:43 p.m.. Updated patient results. No diarrhea here. Laboratory studies imaging studies are reassuring. She is feeling better. Return precautions reviewed. Discussion: Appropriate for discharge home exam and laboratory studies imaging studies are reassuring. Return precautions reviewed. No diarrhea during course of stay. Referral for General surgery endoscopy provided. She desires discharge home. Diagnosis: Gastroenteritis Discharge Plan Departure Patient Disposition: Home Clinical Impression: Gastroenteritis Instructions: DI for Dyspepsia Activity Restrictions/Additional Instructions: Your exam and laboratory studies and imaging studies are reassuring today. Please call provided general surgery office for endoscopy of the stomach and possible colonoscopy. Prescriptions have been provided for you. Keep well hydrated. See your family doctor within a week for re-evaluation as well. Prescriptions: New pantoprazole [Protonix] 40 mg tablet,delayed release (DR/EC) 40 mg PO DAILY Qty: 30 0RF ondansetron 4 mg tablet,disintegrating 4 mg PO Q8H PRN (Reason: nausea and vomiting) Qty: 10 0RF No Action cyclobenzaprine 5 mg tablet 5 mg PO TID PRN (Reason: muscle spasm) Qty: 14 0RF benzonatate 100 mg capsule 100 mg PO BID PRN (Reason: cough) Qty: 20 0RF doxycycline hyclate 100 mg tablet 100 mg PO BID Qty: 20 0RF Referrals: Mitch Archibald MD [Physician] - Ashwini Ortega MD [Primary Care Provider] - Stand Alone Forms: Patient Portal/API
[2024-05-01 14:20] VITALS: BP 109/77; PULSE 83; RESP 12; O2SAT 99
[2024-05-01] MEDS: KETOROLAC 30 MG/ML VIAL 15 MG IV (14:26)
[2024-05-01 15:32] LABS: Adenovirus Not Detected (Not Detect); B. parapertussis Not Detected (Not Detecte); Bordetella pertussis Not Detected (Not Detect); Chlamydophila pneumoniae Not Detected (Not Detect); Coronavirus 229E Not Detected (Not Detect); Coronavirus HKU1 Not Detected (Not Detect); Coronavirus NL 63 Not Detected (Not Detect); Coronavirus OC43 Not Detected (Not Detect); Human Metapneumovirus Not Detected (Not Detect); Human Rhinovirus/Enterovirus Not Detected (Not Detect); Influenza A Not Detected (Not Detect); Influenza B Not Detected (Not Detect); Mycoplasma pneumoniae Not Detected (Not Detect); Parainfluenza Virus 1 Not Detected (Not Detect); Parainfluenza Virus 2 Not Detected (Not Detect); Parainfluenza Virus 3 Not Detected (Not Detect); Parainfluenza Virus 4 Not Detected (Not Detect); Respiratory Syncytial Virus Not Detected (Not Detect); SARS- CoV-2 Not Detected (Not Detecte)
[2024-05-01 15:42] VITALS: BP 103/66; PULSE 83; RESP 12; O2SAT 98
[2024-05-01 17:18] VITALS: BP 122/70; PULSE 62; RESP 18; O2SAT 99
== END 2024-05-01 17:20 | disposition home or self-care (01) ==
PROVIDERS: Emergency Provider Emergency Medicine; PCP Family Medicine
DX: K52.9 Noninfective gastroenteritis and colitis, unspecified (principal); Z11.52 Encounter for screening for COVID-19
CPT/HCPCS: 36415; 74177; 80053; 81003; 81025; 83690; 85025; 87633; 96361; 96374; 96375; 99284; J1885; J2405; Q9967